=== PATIENT | female | born 1935 | race African-American/Black ===

== ENCOUNTER 2016-06-01 19:27 | Emergency (ER) | payer MEDICARE, MEDICAID ==
[~2016-06-01] VITALS: Ht 170.2 cm; Wt 72.0 kg
[~2016-06-01 19:27] MED LIST: AMLO10TA80 PO; BUME2TAB3 PO; CINA30 PO; CLON0.1T PO; FERR-63 PO; HYDR-523 PO; LAMO200T PO; LORA10TA7 PO; METOLAZONE PO; MINO2.5T19 PO; MONT10TA21 PO; NEBI20TA2 PO; ONDA4TAB5 PO; PHOSLO PO; RENAVITE PO; SEVE800T8 PO; TERA2CAP53 PO
[2016-06-01] MEDS ORDERED: LEVOFLOXACIN 750MG PREMIX 150 ML IV STA (19:48)
[2016-06-01] MEDS ORDERED: MAGNESIUM 2 G PREMIX 50 ML IV STA (19:48)
[2016-06-01] MEDS ORDERED: IPRATROPIUM BROMIDE (0.02%) 0.5MG/2.5ML NEB HHN STA ×2 (19:48)
[2016-06-01] MEDS ORDERED: METHYLPREDNISOLONE SOD SUCC 125 MG/2 ML VIAL IV STA (19:48)
[2016-06-01] MEDS ORDERED: ALBUTEROL (0.083%) 2.5MG/3ML NEB HHN STA (19:48)
[2016-06-01] MEDS ORDERED: NITROGLYCERIN OINT 1GM/INCH UDPKT TD ONE (20:00)
[2016-06-01] MEDS ORDERED: HALOPERIDOL LACTATE 5MG/ML VIAL IM ONE (20:00)
[2016-06-01] MEDS ORDERED: ALBUTEROL (0.083%) 2.5MG/3ML NEB HHN SCH (20:00)
[2016-06-01] MEDS ORDERED: ASPIRIN 81MG TABLET PO ONE (20:00)
[2016-06-01 21:06] LABS: BG BASE EXCESS 5.3 mmol/L (-2.0-2.0); BG CARBOXYHEMOGLOBIN 1.2 % (0.5-1.5); BG DEOXYHEMOGLOBIN 0.9 % (0.0-5.0); BG FRACTION INSPIRED OXYGEN 60; BG HCO3 ACT 29.4 mmol/L (22.0-26.0); BG OXYGEN SATURATION 99.1 % (92.0-98.5); BG OXYHEMOGLOBIN 97.9 % (94.0-97.0); BG PCO2 40.9 mmHg (35.0-45.0); BG PH 7.474 (7.350-7.450); BG PO2 179.7 mmHg (75.0-100.0); BG SAMPLE SITE RIGHT RADIAL; BG TOTAL HEMOGLOBIN 12.8 g/dL (12.0-18.0); BG VENT MODE ON TX
[2016-06-01] MEDS ORDERED: LABETALOL HCL 20MG/4ML CARPUJECT IV ONE (21:15)
[2016-06-01 21:24] LABS: BASOPHILS % 1.3 % (0.0-2.0); EOSINOPHILS % 0.9 % (0.0-5.0); HEMATOCRIT. 36.6 % (36.0-48.0); LYMPHOCYTES % 17.8 % (20.0-50.0); MEAN CORPUSCULAR HEMOGLOBIN 30.4 pg (28.0-32.0); MEAN CORPUSCULAR HGB CONC 32.7 g/dL (31.0-37.0); MEAN CORPUSCULAR VOLUME 93.2 fL (81.0-99.0); MEAN PLATELET VOLUME 8.5 fl (7.4-10.4); MONOCYTES % 13.2 % (2.0-8.0); NEUTROPHILS % 66.8 % (40.0-76.0); PLATELET 189 x1000/uL (130-400); RED BLOOD CELL COUNT 3.93 mill/uL (4.2-5.4); RED CELL DISTRIBUTION WIDTH 21.3 % (11.6-14.6); WHITE BLOOD COUNT 7.8 x1000/uL (4.5-11.0)
[2016-06-01 21:30] LABS: D-DIMER 0.73 mg/L FEU (<0.50); INR 0.9; PROTHROMBIN TIME 9.6 sec
[2016-06-01 21:38] LABS: ALANINE AMINOTRANSFERASE 12 IU/L (13-61); ALBUMIN 2.5 g/dL (3.4-5.0); ANION GAP 14; CALCIUM 8.3 mg/dL (8.5-10.1); CARBON DIOXIDE 31 mEq/L (21-32); CHLORIDE 95 mEq/L (98-107); ETHANOL BLOOD < 10 mg/dL; INDEX HEMOLYSI 2 (1-3); INDEX ICTERIC 1 (1-4); INDEX LIPEMIC 1 (1-3); LIPASE 394 IU/L (73-393); TROPONIN I 0.16 ng/mL (0.00-0.04); UREA NITROGEN BLOOD 22 mg/dL (7-21); eGFR 20 mL/min (>60)
[2016-06-01] MEDS ORDERED: MORPHINE SULFATE 4 MG/ML CPJ (NOT FOR IM USE) IV NR (22:03)
[2016-06-02 06:24] VITALS: BP 139/67
== END 2016-06-02 06:41 ==
LOC: ER 20:48
DX: J44.1 Chronic obstructive pulmonary disease with (acute) exacerbation (principal); N18.6 End stage renal disease; I47.1 Supraventricular tachycardia; I13.0 Hypertensive heart and chronic kidney disease with heart failure and stage 1 through stage 4 chronic kidney disease, or unspecified chronic kidney disease; I50.9 Heart failure, unspecified; F03.90 Unspecified dementia, unspecified severity, without behavioral disturbance, psychotic disturbance, mood disturbance, and anxiety; E78.00 Pure hypercholesterolemia, unspecified; Z88.1 Allergy status to other antibiotic agents; Z88.6 Allergy status to analgesic agent; Z88.8 Allergy status to other drugs, medicaments and biological substances; Z79.899 Other long term (current) drug therapy; Z99.2 Dependence on renal dialysis
CPT/HCPCS: 36415; 36600; 71010; 80053; 82375; 82805; 83605; 83690; 84484; 85025; 85379; 85610; 93005; 94640; 96365; 96375; 99291; G0482; J1956; J2270; J2930; J3475; J3490; J7611

== ENCOUNTER 2016-08-08 17:43 | Emergency (ER) | payer MEDICARE, MEDICAID ==
[~2016-08-08] VITALS: Ht 167.6 cm; Wt 90.0 kg
[2016-08-08 18:32] LABS: BASOPHILS % 0.7 % (0.0-2.0); EOSINOPHILS % 2.2 % (0.0-5.0); HEMATOCRIT. 32.1 % (36.0-48.0); HEMOGLOBIN. 10.5 g/dL (12.0-16.0); LYMPHOCYTES % 14.7 % (20.0-50.0); MEAN CORPUSCULAR HEMOGLOBIN 29.9 pg (28.0-32.0); MEAN CORPUSCULAR VOLUME 91.1 fL (81.0-99.0); MEAN PLATELET VOLUME 8.9 fl (7.4-10.4); MONOCYTES % 9.3 % (2.0-8.0); NEUTROPHILS % 73.1 % (40.0-76.0); PLATELET 234 x1000/uL (130-400); RED BLOOD CELL COUNT 3.53 mill/uL (4.2-5.4); RED CELL DISTRIBUTION WIDTH 20.5 % (11.6-14.6)
[2016-08-08 18:34] LABS: CHLORIDE 98 mEq/L (98-107)
[2016-08-08 18:37] LABS: CARBON DIOXIDE 34 mEq/L (21-32)
[2016-08-08 18:44] LABS: CARBAMAZEPINE < 0.5 ug/mL (4-12); PHENYTOIN 0.4 ug/mL (10-20)
[2016-08-08 18:46] LABS: PHENOBARBITAL 5.1 ug/mL (15.0-40.0)
[2016-08-08 18:47] LABS: VALPROIC ACID < 3.0 ug/mL (50-100)
[2016-08-08] MEDS ORDERED: PHENOBARBITAL SODIUM 65MG/ML 1ML IV ONE (19:15)
[2016-08-08] MEDS ORDERED: LAMOTRIGINE 100MG TABLET PO SCH (19:15)
[2016-08-08] MEDS ORDERED: ACETAMINOPHEN 325MG TABLET PO ONE (19:45)
[2016-08-08] MEDS ORDERED: TRAMADOL 50MG TABLET PO ONE (20:30)
[2016-08-08 20:31] VITALS: BP 157/70
== END 2016-08-08 21:50 | disposition home or self-care (01) ==
LOC: ER 18:27
DX: R56.9 Unspecified convulsions (principal); I48.91 Unspecified atrial fibrillation; E78.00 Pure hypercholesterolemia, unspecified; F03.90 Unspecified dementia, unspecified severity, without behavioral disturbance, psychotic disturbance, mood disturbance, and anxiety; I13.0 Hypertensive heart and chronic kidney disease with heart failure and stage 1 through stage 4 chronic kidney disease, or unspecified chronic kidney disease; I50.9 Heart failure, unspecified; N18.9 Chronic kidney disease, unspecified; Z99.2 Dependence on renal dialysis; Z88.1 Allergy status to other antibiotic agents; Z88.6 Allergy status to analgesic agent
CPT/HCPCS: 36415; 80053; 80156; 80165; 80184; 80185; 85025; 96374; 99284; J2560

== ENCOUNTER 2016-08-13 17:38 | Inpatient (IN) | payer MEDICARE, MEDICAID ==
[~2016-08-13] VITALS: Ht 162.6 cm; Wt 93.2 kg
[~2016-08-13 17:38] MED LIST changes: +TERA2CAP4 PO; -TERA2CAP53 PO
[2016-08-13 19:32] LABS: BASOPHILS % 0.6 % (0.0-2.0); EOSINOPHILS % 2.1 % (0.0-5.0); HEMATOCRIT. 28.2 % (36.0-48.0); HEMOGLOBIN. 9.1 g/dL (12.0-16.0); LYMPHOCYTES % 8.3 % (20.0-50.0); MEAN CORPUSCULAR HEMOGLOBIN 29.6 pg (28.0-32.0); MEAN CORPUSCULAR VOLUME 92.3 fL (81.0-99.0); MEAN PLATELET VOLUME 8.5 fl (7.4-10.4); MONOCYTES % 9.4 % (2.0-8.0); NEUTROPHILS % 79.6 % (40.0-76.0); PLATELET 171 x1000/uL (130-400); RED BLOOD CELL COUNT 3.06 mill/uL (4.2-5.4); RED CELL DISTRIBUTION WIDTH 21.8 % (11.6-14.6)
[2016-08-13 19:49] LABS: CARBON DIOXIDE 35 mEq/L (21-32); CHLORIDE 100 mEq/L (98-107); PHENOBARBITAL 6.5 ug/mL (15.0-40.0); TROPONIN I 0.02 ng/mL (0.00-0.04)
[2016-08-13] MEDS ORDERED: KETOROLAC 30MG/ML VIAL IV ONE (21:15)
[2016-08-14] MEDS ORDERED: LACTULOSE 20G/30ML UDC PO PRN (03:45)
[2016-08-14] MEDS ORDERED: CLONIDINE 0.1MG TABLET PO PRN (03:45)
[2016-08-14] MEDS ORDERED: HYDROCODONE/ACETAMINOPHEN 5/325MG TABLET PO PRN (03:45)
[2016-08-14] MEDS ORDERED: ACETAMINOPHEN 325MG TABLET PO PRN (03:45)
[2016-08-14] MEDS ORDERED: METOCLOPRAMIDE 10MG/10 ML UDC PO PRN (03:45)
[2016-08-14] MEDS ORDERED: DIPHENHYDRAMINE 25MG CAPSULE PO PRN (03:45)
[2016-08-14] MEDS ORDERED: LORAZEPAM 2MG/ML CPJ IV PRN (05:15)
[2016-08-14] MEDS: CALCIUM ACETATE 667MG CAPSULE PO SCH ×3 (07:04→18:18)
[2016-08-14] MEDS: PHENOBARBITAL 30 MG TABLET PO SCH ×3 (07:04→22:39)
[2016-08-14] MEDS ORDERED: OMEPRAZOLE 20MG CAPSULE EXTENDED RELEASE PO NR (08:15)
[2016-08-14 09:12] LABS: HEMATOCRIT 25.1 % (36.0-48.0); HEMOGLOBIN 8.3 g/dL (12.0-16.0); MEAN CORPUSCULAR HEMOGLOBIN 30.1 pg (28.0-32.0); MEAN CORPUSCULAR VOLUME 91.6 fL (81.0-99.0); PLATELET 159 x1000/uL (130-400); RED BLOOD CELL COUNT 2.74 mill/uL (4.2-5.4); RED CELL DISTRIBUTION WIDTH 21.8 % (11.6-14.6)
[2016-08-14] MEDS: DOCUSATE SODIUM 250MG CAPSULE PO SCH (09:14)
[2016-08-14] MEDS: ISOSORBIDE MONONITRATE 30MG TABLET SR 24HR PO SCH (09:14)
[2016-08-14] MEDS: CALCITRIOL 0.25MCG CAPSULE PO SCH (09:14)
[2016-08-14] MEDS: METOPROLOL TARTRATE 25MG TABLET PO SCH ×2 (09:15→22:39)
[2016-08-14] MEDS: LEVETIRACETAM 250MG TABLET PO SCH ×2 (09:15→22:35)
[2016-08-14] MEDS: AMIODARONE HCL 200 MG TABLET PO SCH ×2 (09:15→22:39)
[2016-08-14 09:54] LABS: CARBON DIOXIDE 35 mEq/L (21-32); CHLORIDE 100 mEq/L (98-107); TOTAL IRON BINDING CAPACITY 171 ug/dL (250-450)
[2016-08-14] MEDS: HYDROCODONE/ACETAMINOPHEN 5/325MG TABLET PO PRN (13:27)
[2016-08-14] MEDS ORDERED: FAMOTIDINE 20MG TABLET PO SCH (21:00)
[2016-08-15] MEDS: PHENOBARBITAL 30 MG TABLET PO SCH ×3 (06:00→21:22)
[2016-08-15 06:08] LABS: PROTHROMBIN TIME 10.4 sec
[2016-08-15 06:57] LABS: BASOPHILS % 1.6 % (0.0-2.0); CARBON DIOXIDE 34 mEq/L (21-32); CHLORIDE 100 mEq/L (98-107); EOSINOPHILS % 4.1 % (0.0-5.0); HEMATOCRIT. 26.6 % (36.0-48.0); HEMOGLOBIN. 8.6 g/dL (12.0-16.0); LYMPHOCYTES % 21.3 % (20.0-50.0); MEAN CORPUSCULAR HEMOGLOBIN 29.9 pg (28.0-32.0); MEAN PLATELET VOLUME 8.7 fl (7.4-10.4); MONOCYTES % 12.2 % (2.0-8.0); NEUTROPHILS % 60.8 % (40.0-76.0); PLATELET 165 x1000/uL (130-400); RED BLOOD CELL COUNT 2.86 mill/uL (4.2-5.4); RED CELL DISTRIBUTION WIDTH 22.7 % (11.6-14.6)
[2016-08-15] MEDS: OMEPRAZOLE 20MG CAPSULE EXTENDED RELEASE PO SCH (07:38)
[2016-08-15] MEDS: CALCIUM ACETATE 667MG CAPSULE PO SCH ×3 (07:39→18:06)
[2016-08-15] MEDS ORDERED: DIPHENHYDRAMINE 50MG/ML VIAL IV NR (08:30)
[2016-08-15] MEDS ORDERED: DIPHENHYDRAMINE 50MG/ML VIAL IV PRN (08:30)
[2016-08-15] MEDS: DOCUSATE SODIUM 250MG CAPSULE PO SCH (08:43)
[2016-08-15] MEDS: ISOSORBIDE MONONITRATE 30MG TABLET SR 24HR PO SCH (08:44)
[2016-08-15] MEDS: LEVETIRACETAM 250MG TABLET PO SCH ×2 (08:44→21:19)
[2016-08-15] MEDS: CALCITRIOL 0.25MCG CAPSULE PO SCH (08:45)
[2016-08-15] MEDS: FOLIC ACID/VITAMIN B COMP W-C TABLET PO SCH (08:45)
[2016-08-15] MEDS ORDERED: SORBITOL 70% SOLN 30ML PO NR (08:45)
[2016-08-15] MEDS: AMIODARONE HCL 200 MG TABLET PO SCH ×2 (08:45→21:18)
[2016-08-15] MEDS: METOPROLOL TARTRATE 25MG TABLET PO SCH ×2 (09:00→21:18)
[2016-08-15] MEDS ORDERED: CEFAZOLIN 1000MG PREMIX 50 ML IV ONE ×2 (10:21→11:00)
[2016-08-15] MEDS ORDERED: LIDOCAINE HCL 1% 20ML VIAL (Pyxis) INJ ONE (10:22)
[2016-08-15] MEDS ORDERED: HEPARIN 1000 UNITS/ML 10ML ONE (10:22)
[2016-08-15] MEDS ORDERED: SODIUM BICARBONATE 4% (2.4MEQ) 5ML VIAL IV ONE (10:22)
[2016-08-15] MEDS ORDERED: IOHEXOL-300 100 ML BOTTLE ONE (10:33)
[2016-08-15] MEDS ORDERED: FENTANYL CITRATE/PF 50MCG/ML 2ML VIAL ONE (10:52)
[2016-08-15] MEDS ORDERED: HEPARIN 5000 UNITS/ML VIAL IV NR (11:00)
[2016-08-15] MEDS ORDERED: FENTANYL CITRATE/PF 50MCG/ML 2ML VIAL IV NR (11:15)
[2016-08-15 11:17] LABS: PLATELET ESTIMATE NORMAL
[2016-08-15 17:18] LABS: PHOSPHORUS 2.5 mg/dL (2.5-4.9)
[2016-08-15] MEDS ORDERED: EPOETIN ALFA 4000UNITS/ML VIAL SUBCUT SCH (21:00)
[2016-08-15] MEDS ORDERED: EPOETIN ALFA 10000UNITS/ML VIAL SUBCUT SCH (21:00)
[2016-08-15] MEDS: HYDROCODONE/ACETAMINOPHEN 5/325MG TABLET PO PRN (21:31)
[2016-08-16] MEDS: PHENOBARBITAL 30 MG TABLET PO SCH ×2 (06:20→13:12)
[2016-08-16 07:19] LABS: HEMATOCRIT. 25.6 % (36.0-48.0); HEMOGLOBIN. 8.4 g/dL (12.0-16.0); MEAN CORPUSCULAR HEMOGLOBIN 30.9 pg (28.0-32.0); MEAN CORPUSCULAR VOLUME 94.3 fL (81.0-99.0); MEAN PLATELET VOLUME 9.1 fl (7.4-10.4); PLATELET 164 x1000/uL (130-400); RED BLOOD CELL COUNT 2.71 mill/uL (4.2-5.4); RED CELL DISTRIBUTION WIDTH 21.7 % (11.6-14.6)
[2016-08-16 08:47] LABS: PLATELET ESTIMATE NORMAL
[2016-08-16] MEDS: LEVETIRACETAM 250MG TABLET PO SCH (08:58)
[2016-08-16] MEDS: OMEPRAZOLE 20MG CAPSULE EXTENDED RELEASE PO SCH (08:58)
[2016-08-16] MEDS: CALCITRIOL 0.25MCG CAPSULE PO SCH (08:58)
[2016-08-16] MEDS: ISOSORBIDE MONONITRATE 30MG TABLET SR 24HR PO SCH (08:58)
[2016-08-16] MEDS: DOCUSATE SODIUM 250MG CAPSULE PO SCH (08:59)
[2016-08-16] MEDS: METOPROLOL TARTRATE 25MG TABLET PO SCH (08:59)
[2016-08-16] MEDS: AMIODARONE HCL 200 MG TABLET PO SCH (08:59)
[2016-08-16] MEDS: CALCIUM ACETATE 667MG CAPSULE PO SCH ×2 (08:59→13:12)
[2016-08-16] MEDS ORDERED: AMLODIPINE 10MG TABLET PO SCH (09:00)
[2016-08-16] MEDS: HYDROCODONE/ACETAMINOPHEN 5/325MG TABLET PO PRN ×2 (09:01→16:38)
[2016-08-16] MEDS: FOLIC ACID/VITAMIN B COMP W-C TABLET PO SCH (09:01)
[2016-08-16 16:38] VITALS: BP 115/56
[2016-09-15] MEDS ORDERED: OMEP20TA2 PO (02:01)
== END 2016-08-16 17:15 | DRG 252 ==
LOC: ER 17:47 → 6WST 23:46 → ENRESERV 23:56
PROVIDERS: ADMIT Internal Medicine Geriatric Medicine; ATTEND Internal Medicine Geriatric Medicine
PROC: 05743ZZ Dilation of Left Innominate Vein, Percutaneous Approach (ICD-10-PCS; principal; 2016-08-15)
PROC: B51W1ZZ Fluoroscopy of Dialysis Shunt/Fistula using Low Osmolar Contrast (ICD-10-PCS; 2016-08-15)
PROC: B51N1ZZ Fluoroscopy of Left Upper Extremity Veins using Low Osmolar Contrast (ICD-10-PCS; 2016-08-15)
PROC: B5181ZZ Fluoroscopy of Superior Vena Cava using Low Osmolar Contrast (ICD-10-PCS; 2016-08-15)
PROC: 5A1D00Z (ICD-10-PCS; 2016-08-15)
DX: T82.868A Thrombosis due to vascular prosthetic devices, implants and grafts, initial encounter (principal); N18.6 End stage renal disease; I87.1 Compression of vein; I12.0 Hypertensive chronic kidney disease with stage 5 chronic kidney disease or end stage renal disease; E44.0 Moderate protein-calorie malnutrition; G40.419 Other generalized epilepsy and epileptic syndromes, intractable, without status epilepticus; D63.8 Anemia in other chronic diseases classified elsewhere; Z68.35 Body mass index [BMI] 35.0-35.9, adult; G89.4 Chronic pain syndrome; M48.00 Spinal stenosis, site unspecified; M81.0 Age-related osteoporosis without current pathological fracture; J44.9 Chronic obstructive pulmonary disease, unspecified; I25.10 Atherosclerotic heart disease of native coronary artery without angina pectoris; E78.00 Pure hypercholesterolemia, unspecified; F03.90 Unspecified dementia, unspecified severity, without behavioral disturbance, psychotic disturbance, mood disturbance, and anxiety; I48.0 Paroxysmal atrial fibrillation; M19.90 Unspecified osteoarthritis, unspecified site; F10.21 Alcohol dependence, in remission; Z80.0 Family history of malignant neoplasm of digestive organs; Z82.49 Family history of ischemic heart disease and other diseases of the circulatory system; Z83.3 Family history of diabetes mellitus; Z79.899 Other long term (current) drug therapy; Z85.118 Personal history of other malignant neoplasm of bronchus and lung; Z90.3 Acquired absence of stomach [part of]; Z99.2 Dependence on renal dialysis; Z99.3 Dependence on wheelchair; Z88.6 Allergy status to analgesic agent; Z88.1 Allergy status to other antibiotic agents; Z91.041 Radiographic dye allergy status; Z87.891 Personal history of nicotine dependence
CPT/HCPCS: 36415; 36901; 36907; 70450; 71010; 80048; 80053; 80184; 83540; 83550; 83735; 84100; 84443; 84484; 85025; 85027; 85610; 93880; 96374; 97162; 97530; 99285; A6261; C1725; C1766; C1769; J0690; J0885; J1200; J1642; J1644; J1885; J3010; J3490; J7030; J7050; Q0163; Q9967

== ENCOUNTER 2016-09-14 16:12 | Inpatient (IN) | payer MEDICARE, MEDICAID ==
[~2016-09-14] VITALS: Ht 162.6 cm; Wt 76.2 kg
[~2016-09-14 16:12] MED LIST changes: -TERA2CAP4 PO; +TERA2CAP53 PO
[2016-09-14 17:08] LABS: HEMATOCRIT. 30.6 % (36.0-48.0); MEAN CORPUSCULAR HEMOGLOBIN 31.3 pg (28.0-32.0); MEAN CORPUSCULAR VOLUME 95.4 fL (81.0-99.0); MEAN PLATELET VOLUME 9.1 fl (7.4-10.4); PLATELET 204 x1000/uL (130-400); RED CELL DISTRIBUTION WIDTH 25.8 % (11.6-14.6)
[2016-09-14 17:14] LABS: PROTHROMBIN TIME 10.7 sec
[2016-09-14 17:16] LABS: CARBON DIOXIDE 25 mEq/L (21-32); CHLORIDE 98 mEq/L (98-107)
[2016-09-14 17:23] LABS: TROPONIN I 0.02 ng/mL (0.00-0.04)
[2016-09-14 17:29] LABS: PLATELET ESTIMATE NORMAL
[2016-09-14 19:09] LABS: PHOSPHORUS 2.8 mg/dL (2.5-4.9)
[2016-09-14] MEDS ORDERED: MORPHINE SULFATE 10 MG/ML CPJ IM ONE (20:00)
[2016-09-14] MEDS ORDERED: FUROSEMIDE 100MG/10ML VIAL IV NR (21:25)
[2016-09-14] MEDS ORDERED: AMIODARONE HCL 200 MG TABLET PO SCH (21:25)
[2016-09-14 23:00] VITALS: BP 115/72
[2016-09-15] MEDS ORDERED: NITROGLYCERIN OINT 1GM/INCH UDPKT TD PRN (00:30)
[2016-09-15] MEDS: DILTIAZEM HCL 60MG TABLET PO SCH ×5 (00:47→18:10)
[2016-09-15] MEDS: HYDROCODONE/ACETAMINOPHEN 5/325MG TABLET PO PRN ×4 (00:48→17:58)
[2016-09-15] MEDS ORDERED: METO25TA6 PO (02:01)
[2016-09-15] MEDS ORDERED: CALC0.253 PO (02:01)
[2016-09-15] MEDS ORDERED: ACET-2178 PO (02:01)
[2016-09-15] MEDS ORDERED: OXYC-104 PO (02:01)
[2016-09-15] MEDS ORDERED: DOCU-138 PO (02:01)
[2016-09-15] MEDS ORDERED: ISOS30TA6 PO (02:01)
[2016-09-15] MEDS ORDERED: LEVE500T19 PO (02:01)
[2016-09-15] MEDS ORDERED: LACT10SO6 PO (02:01)
[2016-09-15] MEDS ORDERED: OMEP20TA80 PO (02:01)
[2016-09-15] MEDS ORDERED: AMIO100T4 PO (02:01)
[2016-09-15] MEDS ORDERED: FOLI1TAB87 PO (02:01)
[2016-09-15] MEDS ORDERED: EPO10 IJ (02:01)
[2016-09-15] MEDS ORDERED: PHEN30TA42 PO (02:01)
[2016-09-15] MEDS ORDERED: LORA1TAB PO (02:01)
[2016-09-15 04:00] VITALS: BP 106/67
[2016-09-15 07:06] LABS: HEMATOCRIT. 32.9 % (36.0-48.0); HEMOGLOBIN. 10.8 g/dL (12.0-16.0); MEAN CORPUSCULAR HEMOGLOBIN 31.6 pg (28.0-32.0); MEAN CORPUSCULAR VOLUME 96.1 fL (81.0-99.0); MEAN PLATELET VOLUME 9.3 fl (7.4-10.4); PLATELET 258 x1000/uL (130-400); RED BLOOD CELL COUNT 3.42 mill/uL (4.2-5.4); RED CELL DISTRIBUTION WIDTH 25.7 % (11.6-14.6)
[2016-09-15 07:53] LABS: CHLORIDE 98 mEq/L (98-107)
[2016-09-15 08:00] VITALS: BP 115/79
[2016-09-15 08:08] LABS: CARBON DIOXIDE 22 mEq/L (21-32); TROPONIN I 0.24 ng/mL (0.00-0.04)
[2016-09-15] MEDS ORDERED: CLONIDINE 0.1MG TABLET PO PRN (09:45)
[2016-09-15] MEDS ORDERED: ACETAMINOPHEN 325MG TABLET PO PRN (09:45)
[2016-09-15] MEDS: CLOPIDOGREL 75MG TABLET PO SCH (10:39)
[2016-09-15] MEDS: CALCITRIOL 0.25MCG CAPSULE PO SCH (10:39)
[2016-09-15] MEDS: LEVOFLOXACIN 250MG TABLET PO SCH (10:39)
[2016-09-15] MEDS: PANTOPRAZOLE 40MG DR TABLET PO SCH ×2 (10:39→20:26)
[2016-09-15] MEDS: LAMOTRIGINE 100MG TABLET PO SCH ×2 (10:39→17:12)
[2016-09-15] MEDS: LEVETIRACETAM 250MG TABLET PO SCH ×2 (10:39→20:26)
[2016-09-15] MEDS: CINACALCET HCL 30MG TABLET PO SCH (10:39)
[2016-09-15] MEDS: FERROUS SULFATE 325MG TABLET PO SCH (10:39)
[2016-09-15 12:00] VITALS: BP 100/72
[2016-09-15] MEDS: IPRATROPIUM/ALBUTEROL 0.5-3(2.5)MG/3ML NEB HHN SCH ×3 (12:07→20:39)
[2016-09-15] MEDS: LAMOTRIGINE 150MG TABLET PO SCH ×2 (12:19→17:12)
[2016-09-15] MEDS: PHENOBARBITAL 30 MG TABLET PO SCH ×3 (12:19→22:43)
[2016-09-15 12:48] LABS: NUCLEATED RED BLOOD CELLS 4 /100 WBC; PLATELET ESTIMATE NORMAL
[2016-09-15] MEDS: SEVELAMER CARBONATE 800 MG TABLET PO SCH ×2 (13:10→17:12)
[2016-09-15] MEDS: HYDROCODONE/ACETAMINOPHEN 5/325MG TABLET PO SCH ×2 (14:00→22:43)
[2016-09-15 16:00] VITALS: BP 141/30
[2016-09-15] MEDS: MONTELUKAST SODIUM 10MG TABLET PO SCH (17:11)
[2016-09-15 20:17] VITALS: BP 98/66
[2016-09-16] VITALS: BP 93/65
[2016-09-16] MEDS: IPRATROPIUM/ALBUTEROL 0.5-3(2.5)MG/3ML NEB HHN SCH ×6 (00:43→20:41)
[2016-09-16 04:00] VITALS: BP 109/73
[2016-09-16] MEDS: LAMOTRIGINE 100MG TABLET PO SCH ×2 (07:04→18:13)
[2016-09-16] MEDS: PANTOPRAZOLE 40MG DR TABLET PO SCH ×2 (07:04→21:46)
[2016-09-16] MEDS: PHENOBARBITAL 30 MG TABLET PO SCH ×3 (07:04→21:48)
[2016-09-16] MEDS: LAMOTRIGINE 150MG TABLET PO SCH ×2 (07:05→17:42)
[2016-09-16] MEDS: HYDROCODONE/ACETAMINOPHEN 5/325MG TABLET PO SCH ×3 (07:06→21:48)
[2016-09-16] MEDS ORDERED: ACETAMINOPHEN 325MG TABLET PO PRN (07:15)
[2016-09-16 08:00] VITALS: BP 93/63
[2016-09-16] MEDS ORDERED: SORBITOL 70% SOLN 30ML PO NR (08:45)
[2016-09-16] MEDS ORDERED: NA PHOS,M-B/NA PHOS,DI-BA ENEMA 118ML PR NR (08:45)
[2016-09-16] MEDS: ISOSORBIDE MONONITRATE 30MG TABLET SR 24HR PO SCH (09:00)
[2016-09-16] MEDS ORDERED: AMLODIPINE 10MG TABLET PO SCH (09:00)
[2016-09-16] MEDS ORDERED: NEBIVOLOL HCL 5 MG TABLET PO SCH (09:00)
[2016-09-16] MEDS: SEVELAMER CARBONATE 800 MG TABLET PO SCH ×3 (09:06→17:43)
[2016-09-16] MEDS: CLOPIDOGREL 75MG TABLET PO SCH (09:06)
[2016-09-16] MEDS: FERROUS SULFATE 325MG TABLET PO SCH (09:06)
[2016-09-16] MEDS: LEVETIRACETAM 250MG TABLET PO SCH ×2 (09:06→21:46)
[2016-09-16] MEDS: CALCITRIOL 0.25MCG CAPSULE PO SCH (09:06)
[2016-09-16 12:00] VITALS: BP 106/68
[2016-09-16] MEDS: DILTIAZEM HCL 90MG TABLET PO SCH ×3 (12:36→18:09)
[2016-09-16] MEDS ORDERED: DIGOXIN 500MCG/2ML AMP IV SCH (13:45)
[2016-09-16 14:43] LABS: HEMATOCRIT. 30.9 % (36.0-48.0); MEAN CORPUSCULAR HEMOGLOBIN 31.3 pg (28.0-32.0); MEAN CORPUSCULAR VOLUME 96.3 fL (81.0-99.0); MEAN PLATELET VOLUME 8.8 fl (7.4-10.4); PLATELET 276 x1000/uL (130-400); RED BLOOD CELL COUNT 3.21 mill/uL (4.2-5.4); RED CELL DISTRIBUTION WIDTH 25.5 % (11.6-14.6)
[2016-09-16 15:34] LABS: TROPONIN I 1.1 ng/mL (0.00-0.04)
[2016-09-16 16:00] VITALS: BP 132/75
[2016-09-16 16:13] LABS: NUCLEATED RED BLOOD CELLS 2 /100 WBC; PLATELET ESTIMATE NORMAL
[2016-09-16] MEDS: MONTELUKAST SODIUM 10MG TABLET PO SCH (18:01)
[2016-09-16 20:00] VITALS: BP 106/77
[2016-09-17] VITALS: BP 105/74
[2016-09-17] MEDS: IPRATROPIUM/ALBUTEROL 0.5-3(2.5)MG/3ML NEB HHN SCH ×5 (00:54→20:39)
[2016-09-17 04:00] VITALS: BP 90/78
[2016-09-17] MEDS: PHENOBARBITAL 30 MG TABLET PO SCH ×3 (05:25→21:17)
[2016-09-17] MEDS: LAMOTRIGINE 150MG TABLET PO SCH ×2 (05:25→18:16)
[2016-09-17] MEDS: LAMOTRIGINE 100MG TABLET PO SCH ×2 (05:25→18:15)
[2016-09-17] MEDS: HYDROCODONE/ACETAMINOPHEN 5/325MG TABLET PO SCH ×3 (05:27→21:21)
[2016-09-17] MEDS: DILTIAZEM HCL 90MG TABLET PO SCH ×4 (05:27→18:00)
[2016-09-17 07:17] LABS: CARBON DIOXIDE 26 mEq/L (21-32); CHLORIDE 99 mEq/L (98-107)
[2016-09-17 07:37] LABS: CREATINE KINASE 18 IU/L (26-192); CREATINE KINASE MB FRACTION 1.4 ng/mL (0.5-3.6); HDL CHOLESTEROL 59 mg/dL (40-59); LDL CHOLESTEROL 37 mg/dL (5-100)
[2016-09-17] MEDS: PANTOPRAZOLE 40MG DR TABLET PO SCH ×2 (07:40→20:50)
[2016-09-17 07:42] LABS: TROPONIN I 0.79 ng/mL (0.00-0.04)
[2016-09-17 08:00] VITALS: BP 112/56
[2016-09-17 08:07] LABS: HEMATOCRIT. 28.5 % (36.0-48.0); HEMOGLOBIN. 9.4 g/dL (12.0-16.0); MEAN CORPUSCULAR HEMOGLOBIN 31.6 pg (28.0-32.0); MEAN CORPUSCULAR VOLUME 95.4 fL (81.0-99.0); MEAN PLATELET VOLUME 8.3 fl (7.4-10.4); PLATELET 256 x1000/uL (130-400); RED BLOOD CELL COUNT 2.99 mill/uL (4.2-5.4); RED CELL DISTRIBUTION WIDTH 25.6 % (11.6-14.6)
[2016-09-17] MEDS: SEVELAMER CARBONATE 800 MG TABLET PO SCH ×3 (08:10→18:17)
[2016-09-17] MEDS: FERROUS SULFATE 325MG TABLET PO SCH (08:10)
[2016-09-17] MEDS ORDERED: DIGOXIN 125MCG TABLET PO NR (08:15)
[2016-09-17] MEDS ORDERED: SORBITOL 70% SOLN 30ML PO NR (08:15)
[2016-09-17] MEDS ORDERED: NA PHOS,M-B/NA PHOS,DI-BA ENEMA 118ML PR NR (08:15)
[2016-09-17] MEDS: CALCITRIOL 0.25MCG CAPSULE PO SCH (09:00)
[2016-09-17] MEDS: LEVETIRACETAM 250MG TABLET PO SCH ×2 (09:00→20:50)
[2016-09-17] MEDS: CLOPIDOGREL 75MG TABLET PO SCH (09:00)
[2016-09-17] MEDS: CINACALCET HCL 30MG TABLET PO SCH (10:00)
[2016-09-17] MEDS: LEVOFLOXACIN 250MG TABLET PO SCH (11:13)
[2016-09-17] MEDS: ISOSORBIDE MONONITRATE 30MG TABLET SR 24HR PO SCH (11:14)
[2016-09-17] MEDS ORDERED: DIGOXIN 500MCG/2ML AMP IV NR (11:15)
[2016-09-17] MEDS ORDERED: CLOPIDOGREL 75MG TABLET PO SCH (11:15)
[2016-09-17 12:00] VITALS: BP 121/69
[2016-09-17 13:10] LABS: BG BASE EXCESS 2.8 mmol/L (-2.0-2.0); BG CARBOXYHEMOGLOBIN 0.1 % (0.5-1.5); BG DEOXYHEMOGLOBIN 2.1 % (0.0-5.0); BG HCO3 ACT 28.8 mmol/L (22.0-26.0); BG METHEMOGLOBIN 0.2 % (0.0-1.5); BG OXYGEN SATURATION 97.9 % (92.0-98.5); BG OXYHEMOGLOBIN 97.6 % (94.0-97.0); BG PO2 122.6 mmHg (75.0-100.0); BG SAMPLE SITE RIGHT BRACHIAL; BG VENT MODE NASAL CANNULA
[2016-09-17] MEDS: ASPIRIN 81MG EC TABLET PO SCH (14:18)
[2016-09-17 16:00] VITALS: BP 98/49
[2016-09-17 17:53] LABS: NUCLEATED RED BLOOD CELLS 3 /100 WBC; PLATELET ESTIMATE NORMAL
[2016-09-17] MEDS: MONTELUKAST SODIUM 10MG TABLET PO SCH (18:16)
[2016-09-17] MEDS: DIGOXIN 125MCG TABLET PO SCH (18:19)
[2016-09-17 20:00] VITALS: BP 91/51
[2016-09-17] MEDS ORDERED: EPOETIN ALFA 4000UNITS/ML VIAL SUBCUT SCH (21:00)
[2016-09-17] MEDS ORDERED: PANTOPRAZOLE SODIUM 40 MG/VIAL IV SCH (21:00)
[2016-09-18] VITALS: BP 108/61
[2016-09-18] MEDS: IPRATROPIUM/ALBUTEROL 0.5-3(2.5)MG/3ML NEB HHN SCH ×4 (03:18→20:08)
[2016-09-18 04:00] VITALS: BP 103/63
[2016-09-18] MEDS: DILTIAZEM HCL 90MG TABLET PO SCH ×4 (05:17→18:00)
[2016-09-18] MEDS: LAMOTRIGINE 100MG TABLET PO SCH ×2 (05:18→18:43)
[2016-09-18] MEDS: HYDROCODONE/ACETAMINOPHEN 5/325MG TABLET PO SCH ×3 (05:18→21:30)
[2016-09-18] MEDS: LAMOTRIGINE 150MG TABLET PO SCH ×2 (05:18→18:43)
[2016-09-18] MEDS: PHENOBARBITAL 30 MG TABLET PO SCH ×3 (05:18→21:29)
[2016-09-18 06:16] LABS: INR 1.1; PARTIAL THROMBOPLASTIN TIME 28.5 sec (24.0-34.0); PROTHROMBIN TIME 11.4 sec
[2016-09-18 06:46] LABS: HEMATOCRIT. 29.6 % (36.0-48.0); HEMOGLOBIN. 9.5 g/dL (12.0-16.0); MEAN CORPUSCULAR HEMOGLOBIN 31.5 pg (28.0-32.0); MEAN CORPUSCULAR VOLUME 98.4 fL (81.0-99.0); MEAN PLATELET VOLUME 8.3 fl (7.4-10.4); PLATELET 269 x1000/uL (130-400); RED BLOOD CELL COUNT 3.01 mill/uL (4.2-5.4); RED CELL DISTRIBUTION WIDTH 25.4 % (11.6-14.6)
[2016-09-18 07:27] LABS: TROPONIN I 0.48 ng/mL (0.00-0.04)
[2016-09-18] MEDS: ASPIRIN 81MG EC TABLET PO SCH (07:48)
[2016-09-18] MEDS: SEVELAMER CARBONATE 800 MG TABLET PO SCH ×3 (07:48→18:43)
[2016-09-18] MEDS: FERROUS SULFATE 325MG TABLET PO SCH (07:48)
[2016-09-18] MEDS: CALCITRIOL 0.25MCG CAPSULE PO SCH (07:49)
[2016-09-18 08:00] VITALS: BP 100/60
[2016-09-18] MEDS: ISOSORBIDE MONONITRATE 30MG TABLET SR 24HR PO SCH (09:13)
[2016-09-18] MEDS: LEVETIRACETAM 250MG TABLET PO SCH ×2 (09:13→21:29)
[2016-09-18] MEDS: PANTOPRAZOLE 40MG DR TABLET PO SCH ×2 (09:13→21:31)
[2016-09-18] MEDS ORDERED: SORBITOL 70% SOLN 30ML PO NR ×2 (09:30→21:00)
[2016-09-18] MEDS ORDERED: NA PHOS,M-B/NA PHOS,DI-BA ENEMA 118ML PR NR ×2 (09:30→21:00)
[2016-09-18] MEDS ORDERED: FUROSEMIDE 40MG/4ML VIAL IVP NR (09:30)
[2016-09-18] MEDS ORDERED: SIMETHICONE 40 MG/0.6 ML 30ML ONE ×2 (11:32→15:11)
[2016-09-18] MEDS ORDERED: SODIUM CHLORIDE 0.9% 10ML VIAL ONE (11:32)
[2016-09-18 11:47] LABS: NUCLEATED RED BLOOD CELLS 5 /100 WBC; PLATELET ESTIMATE NORMAL
[2016-09-18 12:00] VITALS: BP 119/62
[2016-09-18] MEDS ORDERED: FENTANYL CITRATE/PF 50MCG/ML 2ML VIAL ONE (15:12)
[2016-09-18] MEDS ORDERED: MIDAZOLAM HCL 5 MG/5 ML VIAL ONE (15:12)
[2016-09-18] MEDS ORDERED: MIDAZOLAM HCL 5 MG/5 ML VIAL IV PRN (15:26)
[2016-09-18 16:00] VITALS: BP_SYST 114; BP_SYST 142; BP_DIAS 72; BP_DIAS 73
[2016-09-18] MEDS: DIGOXIN 125MCG TABLET PO SCH (18:00)
[2016-09-18 18:06] VITALS: BP 108/71
[2016-09-18] MEDS: MONTELUKAST SODIUM 10MG TABLET PO SCH (18:43)
[2016-09-19] VITALS (8 sets, daily range): BP systolic 104–127; BP diastolic 57–70
[2016-09-19] MEDS: IPRATROPIUM/ALBUTEROL 0.5-3(2.5)MG/3ML NEB HHN SCH ×5 (00:01→15:47)
[2016-09-19] MEDS: DILTIAZEM HCL 90MG TABLET PO SCH ×3 (00:13→11:58)
[2016-09-19] MEDS: LAMOTRIGINE 100MG TABLET PO SCH ×2 (05:28→18:15)
[2016-09-19] MEDS: PHENOBARBITAL 30 MG TABLET PO SCH ×2 (05:28→14:27)
[2016-09-19] MEDS: HYDROCODONE/ACETAMINOPHEN 5/325MG TABLET PO SCH ×2 (05:29→14:30)
[2016-09-19] MEDS: LAMOTRIGINE 150MG TABLET PO SCH ×2 (05:30→18:15)
[2016-09-19] MEDS: ISOSORBIDE MONONITRATE 30MG TABLET SR 24HR PO SCH (09:00)
[2016-09-19] MEDS ORDERED: SODIUM POLYSTYRENE SULFONATE 15 G/60 ML BOT PO NR (09:15)
[2016-09-19] MEDS: LEVETIRACETAM 250MG TABLET PO SCH (09:17)
[2016-09-19] MEDS: CALCITRIOL 0.25MCG CAPSULE PO SCH (09:18)
[2016-09-19] MEDS: FERROUS SULFATE 325MG TABLET PO SCH (09:18)
[2016-09-19] MEDS: ASPIRIN 81MG EC TABLET PO SCH (09:18)
[2016-09-19] MEDS: SEVELAMER CARBONATE 800 MG TABLET PO SCH ×3 (09:18→18:16)
[2016-09-19] MEDS: PANTOPRAZOLE 40MG DR TABLET PO SCH (09:18)
[2016-09-19] MEDS: CINACALCET HCL 30MG TABLET PO SCH (09:18)
[2016-09-19] MEDS ORDERED: CLOPIDOGREL 75MG TABLET PO NR (09:30)
[2016-09-19] MEDS: LEVOFLOXACIN 250MG TABLET PO SCH (11:58)
[2016-09-19] MEDS ORDERED: DILTIAZEM HCL 60MG TABLET PO SCH (18:00)
[2016-09-19] MEDS: MONTELUKAST SODIUM 10MG TABLET PO SCH (18:15)
[2016-09-19] MEDS: DIGOXIN 125MCG TABLET PO SCH (18:15)
[2016-09-19] MEDS: HYDROCODONE/ACETAMINOPHEN 5/325MG TABLET PO PRN (20:02)
[2016-09-20] MEDS ORDERED: CLOPIDOGREL 75MG TABLET PO SCH (09:00)
== END 2016-09-19 20:10 | DRG 280 ==
LOC: EDBD 16:12 → ER 16:59 → 7WST 20:23 → EDUNIT# 20:23 → EDBEDREQ 20:35 → ENRESERV 20:47 → 7WST 09-15 04:31
PROVIDERS: ADMIT Internal Medicine Geriatric Medicine; ATTEND Internal Medicine Geriatric Medicine
PROC: 5A1D60Z (ICD-10-PCS; 2016-09-15)
PROC: 0DB68ZX Excision of Stomach, Via Natural or Artificial Opening Endoscopic, Diagnostic (ICD-10-PCS; principal; 2016-09-18 15:00)
DX: I21.4 Non-ST elevation (NSTEMI) myocardial infarction (principal); N18.6 End stage renal disease; J18.9 Pneumonia, unspecified organism; I50.43 Acute on chronic combined systolic (congestive) and diastolic (congestive) heart failure; E44.0 Moderate protein-calorie malnutrition; I13.2 Hypertensive heart and chronic kidney disease with heart failure and with stage 5 chronic kidney disease, or end stage renal disease; J44.0 Chronic obstructive pulmonary disease with (acute) lower respiratory infection; I48.0 Paroxysmal atrial fibrillation; E87.5 Hyperkalemia; D63.8 Anemia in other chronic diseases classified elsewhere; G40.909 Epilepsy, unspecified, not intractable, without status epilepticus; K57.90 Diverticulosis of intestine, part unspecified, without perforation or abscess without bleeding; E11.22 Type 2 diabetes mellitus with diabetic chronic kidney disease; E11.65 Type 2 diabetes mellitus with hyperglycemia; E78.00 Pure hypercholesterolemia, unspecified; E78.5 Hyperlipidemia, unspecified; F02.80 Dementia in other diseases classified elsewhere, unspecified severity, without behavioral disturbance, psychotic disturbance, mood disturbance, and anxiety; G30.9 Alzheimer's disease, unspecified; G89.4 Chronic pain syndrome; I08.1 Rheumatic disorders of both mitral and tricuspid valves; I25.10 Atherosclerotic heart disease of native coronary artery without angina pectoris; T45.515A Adverse effect of anticoagulants, initial encounter; I95.9 Hypotension, unspecified; M48.00 Spinal stenosis, site unspecified; I48.2 Chronic atrial fibrillation; R07.89 Other chest pain; K29.70 Gastritis, unspecified, without bleeding; K44.9 Diaphragmatic hernia without obstruction or gangrene; M19.90 Unspecified osteoarthritis, unspecified site; M81.0 Age-related osteoporosis without current pathological fracture; R29.6 Repeated falls; Z79.01 Long term (current) use of anticoagulants; Z79.899 Other long term (current) drug therapy; Z85.118 Personal history of other malignant neoplasm of bronchus and lung; Z86.73 Personal history of transient ischemic attack (TIA), and cerebral infarction without residual deficits; Z87.11 Personal history of peptic ulcer disease; Z99.2 Dependence on renal dialysis; Z90.2 Acquired absence of lung [part of]; Z90.3 Acquired absence of stomach [part of]; Z95.5 Presence of coronary angioplasty implant and graft; Q27.33 Arteriovenous malformation of digestive system vessel; Y92.89 Other specified places as the place of occurrence of the external cause; Z68.28 Body mass index [BMI] 28.0-28.9, adult; Z88.1 Allergy status to other antibiotic agents; Z88.8 Allergy status to other drugs, medicaments and biological substances; Z88.6 Allergy status to analgesic agent; Z91.041 Radiographic dye allergy status
CPT/HCPCS: 36415; 36600; 70450; 71010; 78582; 80048; 80053; 80061; 82375; 82550; 82553; 82805; 83036; 83735; 83880; 84100; 84484; 85025; 85610; 85651; 85730; 87040; 88305; 88312; 88313; 93005; 93306; 93970; 94640; 94660; 94664; 96372; 97163; 99285; A4216; A9558; J0885; J1160; J1940; J2250; J2270; J3010; J7030; J7620

== ENCOUNTER 2016-10-05 17:42 | Inpatient (IN) | payer MEDICARE, MEDICAID ==
[~2016-10-05] VITALS: Ht 172.7 cm; Wt 75.9 kg
[~2016-10-05 17:42] MED LIST changes: +ACET-2178 PO; +AMIO100T4 PO; +CALC0.253 PO; +DOCU-138 PO; +EPO10 IJ; +FOLI1TAB87 PO; +ISOS30TA6 PO; +LACT10SO6 PO; +LEVE500T19 PO; +LORA1TAB PO; +METO25TA6 PO; +OMEP20TA80 PO; +OXYC-104 PO; +PHEN30TA42 PO
[2016-10-05 18:56] LABS: HEMATOCRIT. 28.7 % (36.0-48.0); HEMOGLOBIN. 9.6 g/dL (12.0-16.0); MEAN CORPUSCULAR HEMOGLOBIN 31.5 pg (28.0-32.0); MEAN CORPUSCULAR VOLUME 94.7 fL (81.0-99.0); MEAN PLATELET VOLUME 8.2 fl (7.4-10.4); PLATELET 225 x1000/uL (130-400); RED BLOOD CELL COUNT 3.04 mill/uL (4.2-5.4); RED CELL DISTRIBUTION WIDTH 22.8 % (11.6-14.6)
[2016-10-05 19:03] LABS: PROTHROMBIN TIME 10.4 sec (9.4-11.6)
[2016-10-05 19:12] LABS: CARBON DIOXIDE 34 mEq/L (21-32); CHLORIDE 98 mEq/L (98-107)
[2016-10-05 19:17] LABS: PHENOBARBITAL 7.2 ug/mL (15.0-40.0)
[2016-10-05 19:57] LABS: PLATELET ESTIMATE NORMAL
[2016-10-05] MEDS ORDERED: PHENOBARBITAL ELIXIR 30 MG/7.5ML UDC PO ONE (20:00)
[2016-10-05] MEDS ORDERED: ACETAMINOPHEN WITH CODEINE 300/30MG TABLET PO ONE (20:30)
[2016-10-06] MEDS ORDERED: ACETAMINOPHEN 325MG TABLET PO ONE (01:45)
[2016-10-06 02:50] VITALS: BP 137/71
[2016-10-06 04:00] VITALS: BP 146/54
[2016-10-06] MEDS: HYDROCODONE/ACETAMINOPHEN 5/325MG TABLET PO PRN ×2 (06:32→11:53)
[2016-10-06 07:35] VITALS: BP 149/61
[2016-10-06] MEDS: ENOXAPARIN 30MG/0.3ML SYR SUBCUT SCH (08:28)
[2016-10-06] MEDS ORDERED: NEBIVOLOL HCL 5 MG TABLET PO SCH (09:30)
[2016-10-06] MEDS ORDERED: CLONIDINE 0.1MG TABLET PO PRN (09:30)
[2016-10-06] MEDS ORDERED: LORAZEPAM 1MG TABLET PO PRN (09:30)
[2016-10-06] MEDS: AMIODARONE HCL 200 MG TABLET PO SCH ×2 (09:30→18:26)
[2016-10-06] MEDS ORDERED: ACETAMINOPHEN 325MG TABLET PO PRN ×2 (09:30→11:39)
[2016-10-06] MEDS ORDERED: CLOPIDOGREL 75MG TABLET PO SCH (09:30)
[2016-10-06] MEDS ORDERED: OMEPRAZOLE 20MG CAPSULE EXTENDED RELEASE PO SCH (09:30)
[2016-10-06] MEDS ORDERED: HYDROCODONE/ACETAMINOPHEN 5/325MG TABLET PO PRN (09:34)
[2016-10-06] MEDS ORDERED: CINACALCET HCL 30MG TABLET PO SCH (10:00)
[2016-10-06] MEDS: AMLODIPINE 10MG TABLET PO SCH (10:00)
[2016-10-06] MEDS: METOPROLOL TARTRATE 25MG TABLET PO SCH ×2 (10:00→20:39)
[2016-10-06] MEDS: ISOSORBIDE MONONITRATE 30MG TABLET SR 24HR PO SCH (10:00)
[2016-10-06] MEDS: FOLIC ACID/VITAMIN B COMP W-C TABLET PO SCH (10:10)
[2016-10-06] MEDS: CALCITRIOL 0.25MCG CAPSULE PO SCH (10:11)
[2016-10-06] MEDS: DOCUSATE SODIUM 100MG CAPSULE PO SCH ×2 (10:11→18:26)
[2016-10-06] MEDS: LEVETIRACETAM 250MG TABLET PO SCH ×2 (10:12→20:39)
[2016-10-06] MEDS: MINOXIDIL 10MG TABLET PO SCH (11:00)
[2016-10-06 12:11] VITALS: BP 160/69
[2016-10-06] MEDS ORDERED: FERROUS SULFATE 325MG TABLET PO SCH (12:50)
[2016-10-06] MEDS ORDERED: PHENOBARBITAL SODIUM 130MG/ML 1ML IV SCH (14:00)
[2016-10-06] MEDS: SEVELAMER CARBONATE 800 MG TABLET PO SCH ×2 (14:21→18:27)
[2016-10-06 15:45] VITALS: BP 160/60
[2016-10-06] MEDS ORDERED: LAMOTRIGINE 100MG TABLET PO SCH (15:45)
[2016-10-06] MEDS ORDERED: MONTELUKAST SODIUM 10MG TABLET PO SCH (17:00)
[2016-10-06 20:00] VITALS: BP 150/59
[2016-10-06] MEDS: DIPHENHYDRAMINE 25MG CAPSULE PO PRN (20:37)
[2016-10-07] VITALS: BP 130/54
[2016-10-07 04:00] VITALS: BP 149/58
[2016-10-07 06:52] LABS: HEMATOCRIT 28.2 % (36.0-48.0); HEMOGLOBIN 9.3 g/dL (12.0-16.0); MEAN CORPUSCULAR HEMOGLOBIN 31.4 pg (28.0-32.0); MEAN CORPUSCULAR VOLUME 95.2 fL (81.0-99.0); PLATELET 246 x1000/uL (130-400); RED BLOOD CELL COUNT 2.97 mill/uL (4.2-5.4); RED CELL DISTRIBUTION WIDTH 21.8 % (11.6-14.6)
[2016-10-07] MEDS ORDERED: OMEPRAZOLE 20MG CAPSULE EXTENDED RELEASE PO SCH (07:20)
[2016-10-07 08:01] VITALS: BP 142/64
[2016-10-07] MEDS: DOCUSATE SODIUM 100MG CAPSULE PO SCH (08:58)
[2016-10-07] MEDS: CALCITRIOL 0.25MCG CAPSULE PO SCH (08:58)
[2016-10-07] MEDS: AMIODARONE HCL 200 MG TABLET PO SCH (08:58)
[2016-10-07] MEDS: LEVETIRACETAM 250MG TABLET PO SCH (08:58)
[2016-10-07] MEDS: SEVELAMER CARBONATE 800 MG TABLET PO SCH ×2 (08:58→12:44)
[2016-10-07] MEDS: FOLIC ACID/VITAMIN B COMP W-C TABLET PO SCH (08:58)
[2016-10-07] MEDS: ISOSORBIDE MONONITRATE 30MG TABLET SR 24HR PO SCH (08:59)
[2016-10-07] MEDS: AMLODIPINE 10MG TABLET PO SCH (08:59)
[2016-10-07] MEDS: ENOXAPARIN 30MG/0.3ML SYR SUBCUT SCH (08:59)
[2016-10-07] MEDS: MINOXIDIL 10MG TABLET PO SCH (08:59)
[2016-10-07] MEDS ORDERED: LAMOTRIGINE 100MG TABLET PO SCH (09:00)
[2016-10-07] MEDS ORDERED: CLOPIDOGREL 75MG TABLET PO SCH (09:00)
[2016-10-07] MEDS: METOPROLOL TARTRATE 25MG TABLET PO SCH (09:02)
[2016-10-07 12:00] VITALS: BP 103/39
[2016-10-07] MEDS: HYDROCODONE/ACETAMINOPHEN 5/325MG TABLET PO PRN (12:49)
[2016-10-07 12:55] VITALS: BP 110/85
[2016-10-07] MEDS: DIPHENHYDRAMINE 25MG CAPSULE PO PRN (15:15)
[2016-10-07 16:00] VITALS: BP 103/47
[2016-10-08] MEDS ORDERED: EPOETIN ALFA 10000UNITS/ML VIAL SUBCUT SCH (21:00)
[2016-10-09 13:12] LABS: LAMOTIGINE (LAMICTAL) None Detected ug/mL (2.0-20.0)
[2016-10-10 13:10] LABS: LEVETIRACETAM / KEPPRA 2.5 ug/mL (10.0-40.0)
== END 2016-10-07 16:53 | DRG 100 ==
LOC: ER 17:42 → 6WST 21:38 → ENRESERV 21:52
PROVIDERS: ADMIT Internal Medicine Geriatric Medicine; ATTEND Internal Medicine Geriatric Medicine
PROC: 5A1D00Z (ICD-10-PCS; principal; 2016-10-06)
DX: G40.419 Other generalized epilepsy and epileptic syndromes, intractable, without status epilepticus (principal); N18.6 End stage renal disease; I13.2 Hypertensive heart and chronic kidney disease with heart failure and with stage 5 chronic kidney disease, or end stage renal disease; E44.1 Mild protein-calorie malnutrition; J44.9 Chronic obstructive pulmonary disease, unspecified; I48.2 Chronic atrial fibrillation; F03.90 Unspecified dementia, unspecified severity, without behavioral disturbance, psychotic disturbance, mood disturbance, and anxiety; D63.8 Anemia in other chronic diseases classified elsewhere; Z99.2 Dependence on renal dialysis; D50.9 Iron deficiency anemia, unspecified; E87.6 Hypokalemia; I50.9 Heart failure, unspecified; I25.10 Atherosclerotic heart disease of native coronary artery without angina pectoris; E78.00 Pure hypercholesterolemia, unspecified; G89.4 Chronic pain syndrome; M15.9 Polyosteoarthritis, unspecified; M81.0 Age-related osteoporosis without current pathological fracture; Z68.25 Body mass index [BMI] 25.0-25.9, adult; Z88.8 Allergy status to other drugs, medicaments and biological substances; Z95.5 Presence of coronary angioplasty implant and graft; Z85.118 Personal history of other malignant neoplasm of bronchus and lung; Z87.11 Personal history of peptic ulcer disease
CPT/HCPCS: 36415; 70450; 71010; 71250; 80048; 80053; 80184; 82542; 85025; 85027; 85610; 93005; 95816; 99285; J1650; J2560; J7030; Q0163

== ENCOUNTER 2016-12-03 14:15 | Inpatient (IN) | payer MEDICARE, MEDICAID ==
[~2016-12-03] VITALS: Ht 170.2 cm; Wt 79.8 kg
[~2016-12-03 14:15] MED LIST changes: +OMEP20TA2 PO; -OMEP20TA80 PO; +TERA2CAP4 PO; -TERA2CAP53 PO
[2016-12-03 17:32] LABS: HEMATOCRIT. 32.8 % (36.0-48.0); HEMOGLOBIN. 10.9 g/dL (12.0-16.0); MEAN CORPUSCULAR HEMOGLOBIN 30.6 pg (28.0-32.0); MEAN CORPUSCULAR VOLUME 92.2 fL (81.0-99.0); MEAN PLATELET VOLUME 8.2 fl (7.4-10.4); PLATELET 170 x1000/uL (130-400); RED BLOOD CELL COUNT 3.55 mill/uL (4.2-5.4); RED CELL DISTRIBUTION WIDTH 25.7 % (11.6-14.6)
[2016-12-03 17:38] LABS: PROTHROMBIN TIME 10.8 sec (9.4-11.6)
[2016-12-03 17:39] LABS: CARBON DIOXIDE 22 mEq/L (21-32); CHLORIDE 100 mEq/L (98-107)
[2016-12-03 17:46] LABS: TROPONIN I < 0.02 ng/mL (0.00-0.04)
[2016-12-03 18:17] LABS: PLATELET ESTIMATE NORMAL
[2016-12-03] MEDS ORDERED: POLY15DR55 OP (21:55)
[2016-12-03 21:59] VITALS: BP 193/79
[2016-12-03 22:00] VITALS: BP 193/76
[2016-12-03] MEDS ORDERED: IPRATROPIUM/ALBUTEROL 0.5-3(2.5)MG/3ML NEB HHN PRN (22:00)
[2016-12-03] MEDS ORDERED: ACETAMINOPHEN 325MG TABLET PO PRN (22:00)
[2016-12-03] MEDS ORDERED: ENOXAPARIN 40MG/0.4ML SYR SUBCUT SCH (22:00)
[2016-12-03] MEDS ORDERED: GUAIFENESIN 200MG/10ML SUGAR FREE UDC PO PRN (22:00)
[2016-12-03] MEDS ORDERED: CLONIDINE 0.1MG TABLET PO PRN ×2 (22:00)
[2016-12-03] MEDS ORDERED: DOCUSATE SODIUM 100MG CAPSULE PO PRN (22:00)
[2016-12-03] MEDS ORDERED: HYDROMORPHONE HCL/PF 2MG/ML CPJ IV PRN (22:15)
[2016-12-03] MEDS ORDERED: SODIUM POLYSTYRENE SULFONATE 15 G/60 ML BOT PO NR (22:15)
[2016-12-03] MEDS: METOCLOPRAMIDE HCL 5MG TABLET PO SCH (22:21)
[2016-12-03] MEDS: FAMOTIDINE 20MG TABLET PO SCH (22:21)
[2016-12-03] MEDS: HYDROMORPHONE HCL/PF 2MG/ML CPJ IV PRN (22:22)
[2016-12-03] MEDS ORDERED: FUROSEMIDE 40MG/4ML VIAL IVP NR (22:30)
[2016-12-04] VITALS (8 sets, daily range): BP systolic 112–176; BP diastolic 57–79
[2016-12-04] MEDS: DILTIAZEM HCL 60MG TABLET PO SCH ×5 (00:09→23:40)
[2016-12-04] MEDS: CEFTRIAXONE 1 G PREMIX 50 ML IV SCH ×2 (00:09→23:40)
[2016-12-04 00:31] LABS: CREATINE KINASE MB FRACTION 1.2 ng/mL (0.5-3.6); TROPONIN I < 0.02 ng/mL (0.00-0.04)
[2016-12-04] MEDS ORDERED: IPRA3AMP9 HHN (00:45)
[2016-12-04] MEDS ORDERED: FAMO20TA8 PO (00:45)
[2016-12-04] MEDS ORDERED: PHEN64.8 PO (00:45)
[2016-12-04] MEDS ORDERED: BECL8.7H NS (00:45)
[2016-12-04] MEDS ORDERED: TIOT18CA3 IH (00:45)
[2016-12-04] MEDS ORDERED: MONT10TA21 PO (00:45)
[2016-12-04] MEDS ORDERED: DIPH25CA83 PO (00:45)
[2016-12-04] MEDS ORDERED: METO-293 PO (00:45)
[2016-12-04] MEDS ORDERED: [UNRECOGNIZED DRUG - CODE] PO (01:02)
[2016-12-04] MEDS ORDERED: CALC-25 PO (01:02)
[2016-12-04] MEDS ORDERED: CALC667T5 PO (01:02)
[2016-12-04] MEDS ORDERED: PATAODR LEFTEYE (01:02)
[2016-12-04] MEDS ORDERED: ARFO15VI2 IH (01:02)
[2016-12-04] MEDS: IPRATROPIUM/ALBUTEROL 0.5-3(2.5)MG/3ML NEB HHN SCH ×6 (01:13→20:42)
[2016-12-04] MEDS: HYDROMORPHONE HCL/PF 2MG/ML CPJ IV PRN ×3 (01:33→21:34)
[2016-12-04] MEDS: LAMOTRIGINE 100MG TABLET PO SCH ×2 (05:16→17:08)
[2016-12-04] MEDS: METOCLOPRAMIDE HCL 5MG TABLET PO SCH ×4 (05:16→23:40)
[2016-12-04] MEDS ORDERED: NA PHOS,M-B/NA PHOS,DI-BA ENEMA 118ML PR PRN (08:45)
[2016-12-04] MEDS ORDERED: PHENOBARBITAL 60MG TABLET PO SCH (09:00)
[2016-12-04] MEDS ORDERED: AMIODARONE HCL 200 MG TABLET PO SCH (09:00)
[2016-12-04 10:11] LABS: HEMATOCRIT. 31.4 % (36.0-48.0); MEAN CORPUSCULAR HEMOGLOBIN 29.3 pg (28.0-32.0); MEAN CORPUSCULAR VOLUME 91.9 fL (81.0-99.0); MEAN PLATELET VOLUME 8.5 fl (7.4-10.4); PLATELET 171 x1000/uL (130-400); RED BLOOD CELL COUNT 3.42 mill/uL (4.2-5.4); RED CELL DISTRIBUTION WIDTH 25.2 % (11.6-14.6)
[2016-12-04 10:44] LABS: CARBON DIOXIDE 21 mEq/L (21-32); CHLORIDE 100 mEq/L (98-107); CREATINE KINASE MB FRACTION 1.1 ng/mL (0.5-3.6); TROPONIN I < 0.02 ng/mL (0.00-0.04)
[2016-12-04] MEDS: CALCIUM ACETATE 667MG CAPSULE PO SCH ×3 (11:32→18:10)
[2016-12-04] MEDS: SEVELAMER CARBONATE 800 MG TABLET PO SCH ×3 (11:33→18:10)
[2016-12-04] MEDS: PHENOBARBITAL 60MG TABLET PO SCH ×3 (11:33→17:08)
[2016-12-04] MEDS: OMEPRAZOLE 20MG CAPSULE EXTENDED RELEASE PO SCH (11:33)
[2016-12-04] MEDS: CINACALCET HCL 30MG TABLET PO SCH (11:34)
[2016-12-04] MEDS: CLOPIDOGREL 75MG TABLET PO SCH (11:34)
[2016-12-04] MEDS: ISOSORBIDE MONONITRATE 30MG TABLET SR 24HR PO SCH (11:35)
[2016-12-04] MEDS: CARVEDILOL 12.5MG TABLET PO SCH ×2 (11:36→20:29)
[2016-12-04] MEDS: ENOXAPARIN 30MG/0.3ML SYR SUBCUT SCH (11:37)
[2016-12-04] MEDS: FLUTICASONE/VILANTEROL 200-25 BLST.W.DEV ORI SCH (11:49)
[2016-12-04] MEDS: ONDANSETRON HCL 4MG/2ML VIAL IV PRN (14:29)
[2016-12-04] MEDS: DIPHENHYDRAMINE 50MG/ML VIAL IV PRN (15:46)
[2016-12-04] MEDS ORDERED: FUROSEMIDE 40MG/4ML VIAL IVP NR (16:00)
[2016-12-04] MEDS: MONTELUKAST SODIUM 10MG TABLET PO SCH (17:08)
[2016-12-04 18:30] LABS: PLATELET ESTIMATE NORMAL
[2016-12-04] MEDS: FAMOTIDINE 20MG TABLET PO SCH (20:28)
[2016-12-04] MEDS: AMIODARONE HCL 200 MG TABLET PO SCH (20:28)
[2016-12-04] MEDS ORDERED: IPRATROPIUM/ALBUTEROL 0.5-3(2.5)MG/3ML NEB HHN SCH (22:30)
[2016-12-05] VITALS: BP 136/77
[2016-12-05] MEDS: IPRATROPIUM/ALBUTEROL 0.5-3(2.5)MG/3ML NEB HHN SCH ×6 (00:30→20:57)
[2016-12-05 04:00] VITALS: BP 139/51
[2016-12-05] MEDS: HYDROMORPHONE HCL/PF 2MG/ML CPJ IV PRN ×4 (04:44→20:46)
[2016-12-05] MEDS: DILTIAZEM HCL 60MG TABLET PO SCH ×3 (05:27→17:10)
[2016-12-05] MEDS: METOCLOPRAMIDE HCL 5MG TABLET PO SCH ×3 (05:27→17:10)
[2016-12-05] MEDS: LAMOTRIGINE 100MG TABLET PO SCH ×2 (05:28→17:10)
[2016-12-05] MEDS: OMEPRAZOLE 20MG CAPSULE EXTENDED RELEASE PO SCH (06:40)
[2016-12-05 08:00] VITALS: BP 144/57
[2016-12-05 08:33] LABS: HEMATOCRIT. 31.5 % (36.0-48.0); HEMOGLOBIN. 10.3 g/dL (12.0-16.0); MEAN CORPUSCULAR HEMOGLOBIN 30.2 pg (28.0-32.0); MEAN CORPUSCULAR VOLUME 92.7 fL (81.0-99.0); MEAN PLATELET VOLUME 8.5 fl (7.4-10.4); PLATELET 166 x1000/uL (130-400); RED CELL DISTRIBUTION WIDTH 25.6 % (11.6-14.6)
[2016-12-05] MEDS: AMIODARONE HCL 200 MG TABLET PO SCH ×2 (09:55→20:46)
[2016-12-05] MEDS: CINACALCET HCL 30MG TABLET PO SCH (09:55)
[2016-12-05] MEDS: PHENOBARBITAL 60MG TABLET PO SCH ×3 (09:55→17:10)
[2016-12-05] MEDS: CLOPIDOGREL 75MG TABLET PO SCH (09:56)
[2016-12-05] MEDS: SEVELAMER CARBONATE 800 MG TABLET PO SCH ×3 (09:56→17:10)
[2016-12-05] MEDS: CALCIUM ACETATE 667MG CAPSULE PO SCH ×3 (09:56→17:10)
[2016-12-05] MEDS: ISOSORBIDE MONONITRATE 30MG TABLET SR 24HR PO SCH (09:56)
[2016-12-05] MEDS: CARVEDILOL 12.5MG TABLET PO SCH ×2 (09:56→20:46)
[2016-12-05] MEDS: ENOXAPARIN 30MG/0.3ML SYR SUBCUT SCH (09:57)
[2016-12-05] MEDS: FLUTICASONE/VILANTEROL 200-25 BLST.W.DEV ORI SCH (10:11)
[2016-12-05] MEDS: ONDANSETRON HCL 4MG/2ML VIAL IV PRN (10:53)
[2016-12-05] MEDS: DIPHENHYDRAMINE 50MG/ML VIAL IV PRN ×2 (10:58→17:09)
[2016-12-05 12:00] VITALS: BP 154/65
[2016-12-05 16:00] VITALS: BP 117/69
[2016-12-05] MEDS: MONTELUKAST SODIUM 10MG TABLET PO SCH (17:10)
[2016-12-05 18:00] LABS: PLATELET ESTIMATE NORMAL
[2016-12-05 20:00] VITALS: BP 128/72
[2016-12-05] MEDS: FAMOTIDINE 20MG TABLET PO SCH (20:46)
[2016-12-06] VITALS: BP 128/76
[2016-12-06] MEDS: METOCLOPRAMIDE HCL 5MG TABLET PO SCH (00:22)
[2016-12-06] MEDS: CEFTRIAXONE 1 G PREMIX 50 ML IV SCH (00:23)
[2016-12-06] MEDS: DILTIAZEM HCL 60MG TABLET PO SCH (00:23)
[2016-12-06] MEDS: DIPHENHYDRAMINE 50MG/ML VIAL IV PRN (00:23)
[2016-12-06] MEDS: IPRATROPIUM/ALBUTEROL 0.5-3(2.5)MG/3ML NEB HHN SCH ×2 (01:27→10:15)
[2016-12-06 08:00] VITALS: BP 142/59
[2016-12-06 09:50] LABS: HEMATOCRIT. 30.3 % (36.0-48.0); HEMOGLOBIN. 9.7 g/dL (12.0-16.0); MEAN CORPUSCULAR HEMOGLOBIN 29.2 pg (28.0-32.0); MEAN CORPUSCULAR VOLUME 91.4 fL (81.0-99.0); MEAN PLATELET VOLUME 8.6 fl (7.4-10.4); PLATELET 158 x1000/uL (130-400); RED BLOOD CELL COUNT 3.32 mill/uL (4.2-5.4); RED CELL DISTRIBUTION WIDTH 25.6 % (11.6-14.6)
[2016-12-06 10:50] VITALS: BP 132/79
[2016-12-06 12:00] VITALS: BP 139/63
[2016-12-06 14:12] VITALS: BP 132/79
[2016-12-06] MEDS: HYDROMORPHONE HCL/PF 2MG/ML CPJ IV PRN (14:12)
[2016-12-07 06:23] LABS: NUCLEATED RED BLOOD CELLS 1 /100 WBC; PLATELET ESTIMATE NORMAL
== END 2016-12-06 14:23 | DRG 291 ==
LOC: ER 15:00 → 7WST 18:41 → ENRESERV 19:57
PROVIDERS: ADMIT Internal Medicine Geriatric Medicine; ATTEND Internal Medicine Geriatric Medicine
DX: I13.2 Hypertensive heart and chronic kidney disease with heart failure and with stage 5 chronic kidney disease, or end stage renal disease (principal); J96.01 Acute respiratory failure with hypoxia; J18.9 Pneumonia, unspecified organism; E46 Unspecified protein-calorie malnutrition; E87.5 Hyperkalemia; I25.110 Atherosclerotic heart disease of native coronary artery with unstable angina pectoris; E87.8 Other disorders of electrolyte and fluid balance, not elsewhere classified; N18.6 End stage renal disease; I50.21 Acute systolic (congestive) heart failure; J44.0 Chronic obstructive pulmonary disease with (acute) lower respiratory infection; J44.1 Chronic obstructive pulmonary disease with (acute) exacerbation; I48.0 Paroxysmal atrial fibrillation; J20.9 Acute bronchitis, unspecified; M81.0 Age-related osteoporosis without current pathological fracture; B96.89 Other specified bacterial agents as the cause of diseases classified elsewhere; D63.8 Anemia in other chronic diseases classified elsewhere; E78.00 Pure hypercholesterolemia, unspecified; E78.5 Hyperlipidemia, unspecified; F02.80 Dementia in other diseases classified elsewhere, unspecified severity, without behavioral disturbance, psychotic disturbance, mood disturbance, and anxiety; G30.9 Alzheimer's disease, unspecified; G40.909 Epilepsy, unspecified, not intractable, without status epilepticus; G89.4 Chronic pain syndrome; L89.90 Pressure ulcer of unspecified site, unspecified stage; M15.9 Polyosteoarthritis, unspecified; Z85.118 Personal history of other malignant neoplasm of bronchus and lung; Z86.73 Personal history of transient ischemic attack (TIA), and cerebral infarction without residual deficits; Z90.3 Acquired absence of stomach [part of]; Z87.11 Personal history of peptic ulcer disease; Z91.15 Patient's noncompliance with renal dialysis; Z98.1 Arthrodesis status; Z98.61 Coronary angioplasty status; Z99.2 Dependence on renal dialysis; Z68.27 Body mass index [BMI] 27.0-27.9, adult; Z88.8 Allergy status to other drugs, medicaments and biological substances
CPT/HCPCS: 36415; 71010; 80048; 80053; 82553; 83036; 83735; 83880; 84443; 84484; 85025; 85610; 85651; 87040; 93005; 93970; 94640; 94664; 99285; J0696; J1170; J1200; J1650; J1940; J2405; J7050; J7620; J8597

== ENCOUNTER 2016-12-14 19:05 | Inpatient (IN) | payer MEDICARE, MEDICAID ==
[~2016-12-14] VITALS: Ht 167.6 cm; Wt 75.3 kg
[~2016-12-14 19:05] MED LIST changes: -AMIO100T4 PO; +ARFO15VI2 IH; +BECL8.7H NS; -BUME2TAB3 PO; +CALC-25 PO; -CALC0.253 PO; +CALC667T5 PO; +DIPH25CA83 PO; -DOCU-138 PO; -EPO10 IJ; +FAMO20TA8 PO; -FERR-63 PO; -FOLI1TAB87 PO; -HYDR-523 PO; +IPRA3AMP9 HHN; -LAMO200T PO; -LEVE500T19 PO; -LORA10TA7 PO; -LORA1TAB PO; +METO-293 PO; -METOLAZONE PO; -MINO2.5T19 PO; -NEBI20TA2 PO; -OMEP20TA2 PO; -ONDA4TAB5 PO; -OXYC-104 PO; +PATAODR LEFTEYE; -PHEN30TA42 PO; +PHEN64.8 PO; -PHOSLO PO; +POLY15DR55 OP; -RENAVITE PO; -TERA2CAP4 PO; +TIOT18CA3 IH; +[UNRECOGNIZED DRUG - CODE] PO
[2016-12-14] MEDS ORDERED: SODIUM CHLORIDE 0.9% 1000ML BAG (SEPSIS BOLUS) IV ONE (19:30)
[2016-12-14 20:17] LABS: BASOPHILS % 1.7 % (0.0-2.0); EOSINOPHILS % 0.5 % (0.0-5.0); HEMATOCRIT. 31.4 % (36.0-48.0); HEMOGLOBIN. 10.2 g/dL (12.0-16.0); LYMPHOCYTES % 7.6 % (20.0-50.0); MEAN CORPUSCULAR HEMOGLOBIN 29.5 pg (28.0-32.0); MEAN CORPUSCULAR VOLUME 90.7 fL (81.0-99.0); MONOCYTES % 11.2 % (2.0-8.0); PLATELET 261 x1000/uL (130-400); PROTHROMBIN TIME 10.5 sec (9.4-11.6); RED BLOOD CELL COUNT 3.46 mill/uL (4.2-5.4); RED CELL DISTRIBUTION WIDTH 25.8 % (11.6-14.6)
[2016-12-14 20:29] LABS: CARBON DIOXIDE 37 mEq/L (21-32); CHLORIDE 98 mEq/L (98-107); TROPONIN I < 0.02 ng/mL (0.00-0.04)
[2016-12-14 20:50] LABS: CLARITY URINE TURBID (CLEAR); COLOR URINE DARK YELLOW (YELLOW); GLUCOSE URINE NEGATIVE (NEGATIVE); KETONES URINE TRACE (NEGATIVE); LEUKOCYTE ESTERASE URINE 3+ (NEGATIVE); NITRITE URINE NEGATIVE (NEGATIVE); OCCULT BLOOD URINE 3+ (NEGATIVE); PROTEIN URINE 2+ (NEGATIVE); SPECIFIC GRAVITY URINE 1.022 (1.005-1.030); UROBILINOGEN URINE 0.2 E.U./dL (0.2-1.0)
[2016-12-14 21:01] LABS: PLATELET ESTIMATE NORMAL
[2016-12-14] MEDS ORDERED: CLOPIDOGREL 75MG TABLET PO ONE (21:15)
[2016-12-14] MEDS ORDERED: CEFTRIAXONE 1 G PREMIX 50 ML IV ONE (21:15)
[2016-12-14] MEDS ORDERED: FLUCONAZOLE 100MG TABLET PO ONE (21:30)
[2016-12-14 23:20] VITALS: BP 160/50
[2016-12-15] MEDS ORDERED: LACTULOSE 20 GM PO PRN (01:45)
[2016-12-15] MEDS ORDERED: ACETAMINOPHEN 325MG TABLET PO PRN (01:45)
[2016-12-15] MEDS ORDERED: CLONIDINE 0.1MG TABLET PO PRN (01:45)
[2016-12-15] MEDS ORDERED: POLYVINYL ALCOHOL OP PRN (01:45)
[2016-12-15] MEDS: HYDROCODONE/ACETAMINOPHEN 5/325MG TABLET PO PRN ×2 (02:14→08:59)
[2016-12-15] MEDS: IPRATROPIUM/ALBUTEROL 0.5-3(2.5)MG/3ML NEB HHN PRN ×2 (03:16→20:10)
[2016-12-15] MEDS ORDERED: POLYVINYL ALCOHOL OPHTH DROPS 15ML OP PRN (03:30)
[2016-12-15] MEDS ORDERED: LACTULOSE 20G/30ML UDC PO PRN (03:45)
[2016-12-15 04:00] VITALS: BP 129/70
[2016-12-15] MEDS: DILTIAZEM HCL 60MG TABLET PO SCH ×3 (06:20→18:11)
[2016-12-15] MEDS: SEVELAMER CARBONATE 800 MG TABLET PO SCH ×3 (07:50→18:10)
[2016-12-15] MEDS ORDERED: MEDICATION NOT ON FORMULARY EA (Calcium Acetate 667 MG) PO SCH (07:50)
[2016-12-15 08:00] VITALS: BP 160/70
[2016-12-15] MEDS ORDERED: HYDROCODONE/ACETAMINOPHEN 5/325MG TABLET PO NR (08:00)
[2016-12-15 08:09] LABS: HEMATOCRIT. 29.6 % (36.0-48.0); HEMOGLOBIN. 9.4 g/dL (12.0-16.0); MEAN CORPUSCULAR HEMOGLOBIN 29.5 pg (28.0-32.0); MEAN CORPUSCULAR VOLUME 92.5 fL (81.0-99.0); MEAN PLATELET VOLUME 8.4 fl (7.4-10.4); PLATELET 240 x1000/uL (130-400); RED CELL DISTRIBUTION WIDTH 25.7 % (11.6-14.6)
[2016-12-15] MEDS: FLUTICASONE PROPIONATE 50MCG/SPRAY BOTTLE BOTHNSTRLS SCH (08:40)
[2016-12-15] MEDS: ISOSORBIDE MONONITRATE 30MG TABLET SR 24HR PO SCH (08:40)
[2016-12-15] MEDS: METOCLOPRAMIDE HCL 10MG TABLET PO SCH ×4 (08:40→21:43)
[2016-12-15] MEDS: CALCIUM CARBONATE 1250MG TABLET (500MG ELEMENTAL CALCIUM) PO SCH (08:40)
[2016-12-15] MEDS: FAMOTIDINE 20MG TABLET PO SCH (08:52)
[2016-12-15] MEDS: AMIODARONE HCL 200 MG TABLET PO SCH (08:59)
[2016-12-15] MEDS ORDERED: AMLODIPINE 10MG TABLET PO SCH (09:00)
[2016-12-15] MEDS ORDERED: OLOPATADINE HCL LEFTEYE SCH (09:00)
[2016-12-15] MEDS ORDERED: CINACALCET HCL 30MG TABLET PO SCH (09:00)
[2016-12-15] MEDS ORDERED: FAMOTIDINE(NEO) 1MG/ML SUSP PO SCH (09:00)
[2016-12-15] MEDS ORDERED: METOPROLOL TARTRATE 25MG TABLET PO SCH (09:00)
[2016-12-15] MEDS: CALCIUM ACETATE 667MG CAPSULE PO SCH ×3 (09:00→18:10)
[2016-12-15] MEDS ORDERED: BECLOMETHASONE DIPROPIONATE NS SCH (09:00)
[2016-12-15] MEDS ORDERED: MEDICATION NOT ON FORMULARY EA (Tiotropium Bromide (Spiriva) 18 MCG) IH SCH (09:00)
[2016-12-15] MEDS: FUROSEMIDE 40MG/4ML VIAL IVP SCH (09:02)
[2016-12-15] MEDS: ENOXAPARIN 30MG/0.3ML SYR SUBCUT SCH (09:02)
[2016-12-15] MEDS: PHENOBARBITAL 60MG TABLET PO SCH ×2 (09:08→18:11)
[2016-12-15 09:13] LABS: CARBON DIOXIDE 30 mEq/L (21-32); CHLORIDE 100 mEq/L (98-107)
[2016-12-15] MEDS ORDERED: SORBITOL 70% SOLN 30ML PO PRN (10:00)
[2016-12-15] MEDS: IPRATROPIUM BROMIDE (0.02%) 0.5MG/2.5ML NEB HHN SCH ×2 (10:43→14:12)
[2016-12-15 10:50] LABS: NUCLEATED RED BLOOD CELLS 1 /100 WBC; PLATELET ESTIMATE NORMAL
[2016-12-15] MEDS: DIPHENHYDRAMINE 25MG CAPSULE PO PRN ×2 (10:54→18:10)
[2016-12-15 12:00] VITALS: BP 140/70
[2016-12-15 16:00] VITALS: BP 128/76
[2016-12-15] MEDS ORDERED: MONTELUKAST SODIUM 10MG TABLET PO SCH (18:00)
[2016-12-15 20:00] VITALS: BP 149/46
[2016-12-15] MEDS ORDERED: CEFTRIAXONE 1 G PREMIX 50 ML IV SCH (22:30)
[2016-12-16] VITALS: BP 125/66
[2016-12-16] MEDS: DILTIAZEM HCL 60MG TABLET PO SCH ×2 (01:05→06:14)
[2016-12-16] MEDS: HYDROCODONE/ACETAMINOPHEN 5/325MG TABLET PO PRN ×2 (01:12→13:08)
[2016-12-16] MEDS: IPRATROPIUM BROMIDE (0.02%) 0.5MG/2.5ML NEB HHN SCH ×3 (01:37→14:07)
[2016-12-16 04:00] VITALS: BP 133/70
[2016-12-16 06:27] LABS: BASOPHILS % 1.3 % (0.0-2.0); EOSINOPHILS % 1.5 % (0.0-5.0); HEMATOCRIT. 29.9 % (36.0-48.0); HEMOGLOBIN. 9.5 g/dL (12.0-16.0); LYMPHOCYTES % 10.6 % (20.0-50.0); MEAN CORPUSCULAR HEMOGLOBIN 29.4 pg (28.0-32.0); MEAN CORPUSCULAR VOLUME 92.5 fL (81.0-99.0); NEUTROPHILS % 72.6 % (40.0-76.0); PLATELET 238 x1000/uL (130-400); RED BLOOD CELL COUNT 3.24 mill/uL (4.2-5.4); RED CELL DISTRIBUTION WIDTH 25.7 % (11.6-14.6)
[2016-12-16 07:38] VITALS: BP 156/66
[2016-12-16] MEDS: ENOXAPARIN 30MG/0.3ML SYR SUBCUT SCH (08:54)
[2016-12-16] MEDS: FUROSEMIDE 40MG/4ML VIAL IVP SCH (08:56)
[2016-12-16] MEDS: SEVELAMER CARBONATE 800 MG TABLET PO SCH ×2 (08:57→12:57)
[2016-12-16] MEDS: CALCIUM ACETATE 667MG CAPSULE PO SCH ×2 (08:57→12:56)
[2016-12-16] MEDS: AMIODARONE HCL 200 MG TABLET PO SCH (08:58)
[2016-12-16] MEDS: PHENOBARBITAL 60MG TABLET PO SCH (08:58)
[2016-12-16] MEDS: FAMOTIDINE 20MG TABLET PO SCH (08:58)
[2016-12-16] MEDS: ISOSORBIDE MONONITRATE 30MG TABLET SR 24HR PO SCH (08:59)
[2016-12-16] MEDS: FLUTICASONE PROPIONATE 50MCG/SPRAY BOTTLE BOTHNSTRLS SCH (08:59)
[2016-12-16] MEDS ORDERED: AMLODIPINE 10MG TABLET PO SCH (09:00)
[2016-12-16] MEDS ORDERED: NAPHAZOLINE HCL/PHENIR MAL OPHTH SOLN 15ML LEFTEYE SCH (09:00)
[2016-12-16] MEDS: CALCIUM CARBONATE 1250MG TABLET (500MG ELEMENTAL CALCIUM) PO SCH (09:00)
[2016-12-16] MEDS: METOCLOPRAMIDE HCL 10MG TABLET PO SCH ×2 (09:16→12:56)
[2016-12-16 12:14] VITALS: BP 158/59
[2016-12-16] MEDS ORDERED: DILTIAZEM HCL 90MG TABLET PO SCH (12:30)
[2016-12-16] MEDS ORDERED: CARVEDILOL 3.125 MG TABLET PO SCH (13:00)
[2016-12-16] MEDS: DIPHENHYDRAMINE 25MG CAPSULE PO PRN (13:06)
[2016-12-16 16:04] VITALS: BP 124/67
[2016-12-16 16:12] VITALS: BP 124/67
== END 2016-12-16 16:38 | DRG 308 ==
LOC: ER 19:19 → 6WST 21:33 → EDBEDREQTM 21:40 → EDBEDREQ 21:40 → ENRESERV 22:02
PROVIDERS: ADMIT Internal Medicine Geriatric Medicine; ATTEND Internal Medicine Geriatric Medicine
PROC: 5A1D70Z Performance of Urinary Filtration, Intermittent, Less than 6 Hours Per Day (ICD-10-PCS; principal; 2016-12-14)
DX: I48.0 Paroxysmal atrial fibrillation (principal); I50.23 Acute on chronic systolic (congestive) heart failure; I13.2 Hypertensive heart and chronic kidney disease with heart failure and with stage 5 chronic kidney disease, or end stage renal disease; N18.6 End stage renal disease; D63.8 Anemia in other chronic diseases classified elsewhere; E44.1 Mild protein-calorie malnutrition; B37.9 Candidiasis, unspecified; E78.00 Pure hypercholesterolemia, unspecified; E78.5 Hyperlipidemia, unspecified; N39.0 Urinary tract infection, site not specified; G40.909 Epilepsy, unspecified, not intractable, without status epilepticus; G89.4 Chronic pain syndrome; I25.10 Atherosclerotic heart disease of native coronary artery without angina pectoris; J44.9 Chronic obstructive pulmonary disease, unspecified; F03.90 Unspecified dementia, unspecified severity, without behavioral disturbance, psychotic disturbance, mood disturbance, and anxiety; F32.9 Major depressive disorder, single episode, unspecified; M19.90 Unspecified osteoarthritis, unspecified site; M81.0 Age-related osteoporosis without current pathological fracture; Z86.73 Personal history of transient ischemic attack (TIA), and cerebral infarction without residual deficits; Z99.2 Dependence on renal dialysis; Z87.11 Personal history of peptic ulcer disease; Z88.6 Allergy status to analgesic agent; Z90.2 Acquired absence of lung [part of]; Z90.3 Acquired absence of stomach [part of]; Z95.5 Presence of coronary angioplasty implant and graft; Z98.1 Arthrodesis status; Z88.1 Allergy status to other antibiotic agents; Z79.899 Other long term (current) drug therapy; Z68.26 Body mass index [BMI] 26.0-26.9, adult; Z86.14 Personal history of Methicillin resistant Staphylococcus aureus infection
CPT/HCPCS: 36415; 71010; 80048; 80053; 81001; 83605; 83880; 84443; 84484; 85025; 85610; 86850; 86900; 87040; 87077; 87086; 87186; 93005; 93970; 94640; 96361; 96365; 99285; J0696; J1650; J1940; J7030; J7050; J7620; J8597; Q0163

== ENCOUNTER 2016-12-28 18:01 | Emergency (ER) | payer MEDICARE, MEDICAID ==
[~2016-12-28] VITALS: Ht 165.1 cm; Wt 86.0 kg
[~2016-12-28 18:01] MED LIST changes: -ARFO15VI2 IH
[2016-12-28] MEDS ORDERED: LORAZEPAM 2MG/ML CPJ ONE (18:23)
[2016-12-28] MEDS ORDERED: LORAZEPAM 2MG/ML CPJ IV PRN (18:45)
[2016-12-28 19:07] LABS: HEMATOCRIT. 33.8 % (36.0-48.0); HEMOGLOBIN. 10.9 g/dL (12.0-16.0); MEAN CORPUSCULAR HEMOGLOBIN 29.8 pg (28.0-32.0); MEAN CORPUSCULAR VOLUME 92.6 fL (81.0-99.0); MEAN PLATELET VOLUME 7.8 fl (7.4-10.4); PLATELET 182 x1000/uL (130-400); RED BLOOD CELL COUNT 3.65 mill/uL (4.2-5.4); RED CELL DISTRIBUTION WIDTH 28.7 % (11.6-14.6)
[2016-12-28 19:13] LABS: CHLORIDE 98 mEq/L (98-107)
[2016-12-28 19:23] LABS: CARBON DIOXIDE 32 mEq/L (21-32); ETHANOL BLOOD < 10 mg/dL; PHENOBARBITAL 7.8 ug/mL (15.0-40.0)
[2016-12-28] MEDS ORDERED: PHENOBARBITAL 60MG TABLET PO ONE (20:00)
[2016-12-28] MEDS ORDERED: AMLODIPINE 5MG TABLET PO ONE (20:30)
[2016-12-28] MEDS ORDERED: CARVEDILOL 3.125 MG TABLET PO ONE (20:30)
[2016-12-28 20:45] LABS: NUCLEATED RED BLOOD CELLS 1 /100 WBC; PLATELET ESTIMATE NORMAL
[2016-12-28] MEDS: CARVEDILOL 3.125 MG TABLET PO NR ×3 (20:45→20:51)
[2016-12-28 22:04] VITALS: BP 175/76
== END 2016-12-28 22:32 | disposition home or self-care (01) ==
LOC: ER 18:56
DX: R56.9 Unspecified convulsions (principal); I10 Essential (primary) hypertension; Z88.1 Allergy status to other antibiotic agents; Z88.6 Allergy status to analgesic agent
CPT/HCPCS: 36415; 80053; 80184; 80185; 85025; 96374; 99284; G0482; J2060

== ENCOUNTER 2017-01-22 02:02 | Emergency (ER) | payer MEDICARE, MEDICAID ==
[~2017-01-22] VITALS: Ht 165.1 cm; Wt 72.0 kg
[2017-01-22 03:29] LABS: BASOPHILS % 1.2 % (0.0-2.0); EOSINOPHILS % 0.9 % (0.0-5.0); HEMATOCRIT. 32.1 % (36.0-48.0); HEMOGLOBIN. 10.2 g/dL (12.0-16.0); LYMPHOCYTES % 7.1 % (20.0-50.0); MEAN CORPUSCULAR HEMOGLOBIN 29.9 pg (28.0-32.0); MEAN CORPUSCULAR VOLUME 94.3 fL (81.0-99.0); MONOCYTES % 9.4 % (2.0-8.0); NEUTROPHILS % 81.4 % (40.0-76.0); PLATELET 177 x1000/uL (130-400); RED CELL DISTRIBUTION WIDTH 29.1 % (11.6-14.6)
[2017-01-22 03:34] LABS: PROTHROMBIN TIME 10.8 sec (9.4-11.6)
[2017-01-22 03:43] LABS: CARBON DIOXIDE 34 mEq/L (21-32); CHLORIDE 98 mEq/L (98-107); TROPONIN I < 0.02 ng/mL (0.00-0.04)
[2017-01-22] MEDS ORDERED: METOPROLOL TARTRATE 25MG TABLET PO ONE (07:15)
[2017-01-22 08:24] VITALS: BP 156/89
== END 2017-01-22 09:25 | disposition home or self-care (01) ==
LOC: ER 02:09
DX: R00.2 Palpitations (principal); R56.9 Unspecified convulsions; J44.9 Chronic obstructive pulmonary disease, unspecified; I50.9 Heart failure, unspecified; I48.91 Unspecified atrial fibrillation; Z88.1 Allergy status to other antibiotic agents; Z88.6 Allergy status to analgesic agent; Z99.2 Dependence on renal dialysis
CPT/HCPCS: 36415; 71010; 80053; 83605; 83690; 84484; 85025; 85610; 93005; 99285

== ENCOUNTER 2017-04-01 00:42 | Inpatient (IN) | payer MEDICARE, MEDICAID ==
[~2017-04-01] VITALS: Ht 172.7 cm; Wt 86.6 kg
[2017-04-01] VITALS (57 sets, daily range): BP systolic 103–153; BP diastolic 59–96
[~2017-04-01 00:42] MED LIST changes: -METO25TA6 PO; -[UNRECOGNIZED DRUG - CODE] PO
[2017-04-01] MEDS ORDERED: ETOMIDATE 2MG/ML 10ML VIAL IV ONE ×2 (01:00→01:15)
[2017-04-01] MEDS ORDERED: VECURONIUM BROMIDE 10 MG/VIAL IV ONE ×2 (01:00→01:15)
[2017-04-01] MEDS ORDERED: STERILE WATER FOR INJECTION 10ML VIAL ONE (01:00)
[2017-04-01] MEDS ORDERED: ONDANSETRON HCL 4MG/2ML INJ IV STA (01:04)
[2017-04-01] MEDS ORDERED: SODIUM CHLORIDE 0.9% 1,000 ML IV ONE (01:04)
[2017-04-01] MEDS ORDERED: NOREPINEPHRINE 4 MG in DEXT 5% WATER 250 ML IV STA ×2 (01:13→01:16)
[2017-04-01] MEDS ORDERED: PROPOFOL 10MG/ML 100ML 100 ML IV ONE (01:15)
[2017-04-01 01:21] LABS: BASOPHILS % 1.4 % (0.0-2.0); EOSINOPHILS % 1.8 % (0.0-5.0); HEMATOCRIT. 33.3 % (36.0-48.0); HEMOGLOBIN. 10.3 g/dL (12.0-16.0); LYMPHOCYTES % 45.6 % (20.0-50.0); MEAN CORPUSCULAR HEMOGLOBIN 34.4 pg (28.0-32.0); MEAN CORPUSCULAR VOLUME 110.7 fL (81.0-99.0); MEAN PLATELET VOLUME 9.5 fl (7.4-10.4); MONOCYTES % 8.2 % (2.0-8.0); PLATELET 213 x1000/uL (130-400); RED BLOOD CELL COUNT 3.01 mill/uL (4.2-5.4); RED CELL DISTRIBUTION WIDTH 27.7 % (11.6-14.6)
[2017-04-01 01:29] LABS: INR 1.3; PROTHROMBIN TIME 13.4 sec (9.4-11.6)
[2017-04-01 01:38] LABS: CHLORIDE 96 mEq/L (98-107)
[2017-04-01 02:47] LABS: BG BASE EXCESS -1.4 mmol/L (-2.0-2.0); BG CARBOXYHEMOGLOBIN 0.2 % (0.5-1.5); BG DEOXYHEMOGLOBIN 0.3 % (0.0-5.0); BG FRACTION INSPIRED OXYGEN 100; BG HCO3 ACT 21.2 mmol/L (22.0-26.0); BG METHEMOGLOBIN 0.1 % (0.0-1.5); BG OXYGEN SATURATION 99.7 % (92.0-98.5); BG OXYHEMOGLOBIN 99.4 % (94.0-97.0); BG PCO2 28.4 mmHg (35.0-45.0); BG PO2 554.2 mmHg (75.0-100.0); BG SAMPLE SITE RIGHT RADIAL; BG TIDAL VOLUME(mL) 500 mL; BG TOTAL HEMOGLOBIN 10.3 g/dL (12.0-18.0); BG VENT MODE VENT - A/C; BG VENT RATE 18 set
[2017-04-01] MEDS ORDERED: ACETAMINOPHEN 325MG TABLET NG PRN (08:15)
[2017-04-01] MEDS ORDERED: PIPERACILLIN/TAZ 3.375G PREMIX 50 ML IV SCH (08:15)
[2017-04-01] MEDS ORDERED: ONDANSETRON HCL 4MG/2ML INJ IV PRN (08:15)
[2017-04-01] MEDS ORDERED: IPRATROPIUM/ALBUTEROL 0.5-3(2.5)MG/3ML NEB HHN SCH (08:15)
[2017-04-01] MEDS ORDERED: FAMOTIDINE 20MG/2ML VIAL IV NR (08:15)
[2017-04-01 09:12] LABS: BG BASE EXCESS -1.7 mmol/L (-2.0-2.0); BG CARBOXYHEMOGLOBIN 0.3 % (0.5-1.5); BG DEOXYHEMOGLOBIN 0.9 % (0.0-5.0); BG HCO3 ACT 21.3 mmol/L (22.0-26.0); BG METHEMOGLOBIN 0.1 % (0.0-1.5); BG OXYGEN SATURATION 99.1 % (92.0-98.5); BG OXYHEMOGLOBIN 98.7 % (94.0-97.0); BG PCO2 30.7 mmHg (35.0-45.0); BG PO2 186.3 mmHg (75.0-100.0); BG SAMPLE SITE RIGHT BRACHIAL; BG TIDAL VOLUME(mL) 500 mL; BG TOTAL HEMOGLOBIN 11.5 g/dL (12.0-18.0); BG VENT MODE VENT - A/C; BG VENT RATE 14 set
[2017-04-01] MEDS: DEXT 5%/0.9% NACL 1,000 ML IV SCH ×2 (09:13→21:54)
[2017-04-01] MEDS ORDERED: PROPOFOL 10MG/ML 100ML 100 ML IV PRN (09:15)
[2017-04-01] MEDS ORDERED: VANCOMYCIN 1500MG in DEXTROSE 5% WATER 250ML IV SCH (10:00)
[2017-04-01] MEDS ORDERED: IPRATROPIUM/ALBUTEROL 0.5-3(2.5)MG/3ML NEB HHN PRN (10:30)
[2017-04-01] MEDS: CLOPIDOGREL 75MG TABLET NG SCH (11:07)
[2017-04-01] MEDS: LAMOTRIGINE 100MG TABLET PO SCH ×2 (11:08→21:43)
[2017-04-01] MEDS: FOLIC ACID/VITAMIN B COMP W-C TABLET NG SCH (11:08)
[2017-04-01] MEDS: PHENOBARBITAL 60MG TABLET PO SCH ×2 (11:08→17:31)
[2017-04-01] MEDS: AMIODARONE HCL 200 MG TABLET NG SCH (11:08)
[2017-04-01] MEDS: PIPERACILLIN/TAZ 2.25G PREMIX 50 ML IV SCH ×2 (11:09→18:36)
[2017-04-01] MEDS: ENOXAPARIN 30MG/0.3ML SYR SUBCUT SCH (11:09)
[2017-04-01] MEDS: BUDESONIDE 0.5MG/2ML NEB HHN SCH ×2 (11:16→20:13)
[2017-04-01] MEDS: IPRATROPIUM BROMIDE (0.02%) 0.5MG/2.5ML NEB HHN SCH ×2 (11:16→20:13)
[2017-04-01] MEDS ORDERED: DIGOXIN 500MCG/2ML AMP IV NR ×2 (15:15→19:15)
[2017-04-01] MEDS ORDERED: NOREPINEPHRINE 4 MG in SODIUM CHLORIDE 0.9% 250 ML IV PRN (16:00)
[2017-04-01 16:42] LABS: CREATINE KINASE MB FRACTION 1.2 ng/mL (0.5-3.6)
[2017-04-02] VITALS (73 sets, daily range): BP systolic 99–139; BP diastolic 52–92
[2017-04-02] MEDS: IPRATROPIUM BROMIDE (0.02%) 0.5MG/2.5ML NEB HHN SCH ×6 (00:24→20:16)
[2017-04-02] MEDS: PHENOBARBITAL 60MG TABLET PO SCH ×3 (04:02→18:19)
[2017-04-02] MEDS: PIPERACILLIN/TAZ 2.25G PREMIX 50 ML IV SCH ×3 (04:02→18:19)
[2017-04-02] MEDS: DEXT 5%/0.9% NACL 1,000 ML IV SCH ×2 (07:24→23:59)
[2017-04-02] MEDS ORDERED: PROPOFOL 10MG/ML 100ML 100 ML IV PRN (07:45)
[2017-04-02 08:47] LABS: BG BASE EXCESS 3.5 mmol/L (-2.0-2.0); BG CARBOXYHEMOGLOBIN 0.6 % (0.5-1.5); BG DEOXYHEMOGLOBIN 0.9 % (0.0-5.0); BG FRACTION INSPIRED OXYGEN 35; BG HCO3 ACT 26.6 mmol/L (22.0-26.0); BG METHEMOGLOBIN 0.2 % (0.0-1.5); BG OXYGEN SATURATION 99.1 % (92.0-98.5); BG OXYHEMOGLOBIN 98.3 % (94.0-97.0); BG PCO2 34.6 mmHg (35.0-45.0); BG PH 7.503 (7.350-7.450); BG PO2 176.1 mmHg (75.0-100.0); BG SAMPLE SITE RIGHT RADIAL; BG TIDAL VOLUME(mL) 500 mL; BG TOTAL HEMOGLOBIN 10.5 g/dL (12.0-18.0); BG VENT MODE VENT - A/C; BG VENT RATE 12 set
[2017-04-02] MEDS: BUDESONIDE 0.5MG/2ML NEB HHN SCH ×2 (09:02→20:16)
[2017-04-02 09:08] LABS: HEMATOCRIT. 32.3 % (36.0-48.0); HEMOGLOBIN. 10.4 g/dL (12.0-16.0); MEAN CORPUSCULAR HEMOGLOBIN 34.8 pg (28.0-32.0); MEAN CORPUSCULAR VOLUME 108.6 fL (81.0-99.0); MEAN PLATELET VOLUME 8.8 fl (7.4-10.4); PLATELET 168 x1000/uL (130-400); RED BLOOD CELL COUNT 2.98 mill/uL (4.2-5.4); RED CELL DISTRIBUTION WIDTH 28.2 % (11.6-14.6)
[2017-04-02] MEDS ORDERED: VANCOMYCIN 1 G PREMIX 200 ML IV SCH (10:00)
[2017-04-02] MEDS: LAMOTRIGINE 100MG TABLET PO SCH ×2 (10:48→22:38)
[2017-04-02] MEDS: ENOXAPARIN 30MG/0.3ML SYR SUBCUT SCH (10:48)
[2017-04-02] MEDS: CLOPIDOGREL 75MG TABLET NG SCH (10:48)
[2017-04-02] MEDS: AMIODARONE HCL 200 MG TABLET NG SCH (10:48)
[2017-04-02] MEDS: FAMOTIDINE 20MG/2ML VIAL IV SCH (10:48)
[2017-04-02] MEDS: FOLIC ACID/VITAMIN B COMP W-C TABLET NG SCH (10:48)
[2017-04-02 11:33] LABS: BG BASE EXCESS 0.1 mmol/L (-2.0-2.0); BG CARBOXYHEMOGLOBIN 0.3 % (0.5-1.5); BG DEOXYHEMOGLOBIN 1.2 % (0.0-5.0); BG FRACTION INSPIRED OXYGEN 35; BG HCO3 ACT 24.1 mmol/L (22.0-26.0); BG METHEMOGLOBIN 0.2 % (0.0-1.5); BG OXYGEN SATURATION 98.8 % (92.0-98.5); BG OXYHEMOGLOBIN 98.3 % (94.0-97.0); BG PCO2 36.5 mmHg (35.0-45.0); BG PH 7.437 (7.350-7.450); BG PO2 151.8 mmHg (75.0-100.0); BG PRESSURE SUPPORT 8; BG SAMPLE SITE RIGHT RADIAL; BG VENT MODE VENT - CPAP
[2017-04-02 12:34] LABS: NUCLEATED RED BLOOD CELLS 4 /100 WBC; PLATELET ESTIMATE NORMAL
[2017-04-02] MEDS: HYDROMORPHONE HCL/PF 2MG/ML CPJ IV PRN ×2 (13:45→23:40)
[2017-04-02] MEDS: DILTIAZEM HCL 30MG TABLET NG SCH ×2 (13:45→22:39)
[2017-04-03] VITALS (63 sets, daily range): BP systolic 91–159; BP diastolic 47–94
[2017-04-03] MEDS: IPRATROPIUM BROMIDE (0.02%) 0.5MG/2.5ML NEB HHN SCH ×6 (00:18→20:23)
[2017-04-03] MEDS: PHENOBARBITAL 60MG TABLET PO SCH ×3 (02:58→17:45)
[2017-04-03] MEDS: PIPERACILLIN/TAZ 2.25G PREMIX 50 ML IV SCH ×3 (02:58→17:45)
[2017-04-03 05:54] LABS: HEMATOCRIT. 27.9 % (36.0-48.0); HEMOGLOBIN. 9.2 g/dL (12.0-16.0); MEAN CORPUSCULAR HEMOGLOBIN 36.1 pg (28.0-32.0); MEAN CORPUSCULAR VOLUME 109.4 fL (81.0-99.0); MEAN PLATELET VOLUME 8.7 fl (7.4-10.4); PLATELET 147 x1000/uL (130-400); RED BLOOD CELL COUNT 2.55 mill/uL (4.2-5.4); RED CELL DISTRIBUTION WIDTH 27.2 % (11.6-14.6)
[2017-04-03 07:18] LABS: ATYPICAL LYMPHOCYTES 1; NUCLEATED RED BLOOD CELLS 2 /100 WBC; PLATELET ESTIMATE NORMAL
[2017-04-03] MEDS: BUDESONIDE 0.5MG/2ML NEB HHN SCH ×2 (08:36→20:23)
[2017-04-03] MEDS ORDERED: DIPHENHYDRAMINE 50MG/ML VIAL IV NR (09:15)
[2017-04-03] MEDS ORDERED: DILTIAZEM HCL 30MG TABLET NG SCH (10:00)
[2017-04-03] MEDS ORDERED: DILTIAZEM HCL 60MG TABLET NG SCH (10:00)
[2017-04-03] MEDS: AMIODARONE HCL 200 MG TABLET NG SCH (11:45)
[2017-04-03] MEDS: CLOPIDOGREL 75MG TABLET NG SCH (11:45)
[2017-04-03] MEDS: FOLIC ACID/VITAMIN B COMP W-C TABLET NG SCH (11:45)
[2017-04-03] MEDS: FAMOTIDINE 20MG/2ML VIAL IV SCH (11:46)
[2017-04-03] MEDS: LAMOTRIGINE 100MG TABLET PO SCH ×2 (11:46→21:05)
[2017-04-03] MEDS: ENOXAPARIN 30MG/0.3ML SYR SUBCUT SCH (11:47)
[2017-04-03 14:33] LABS: PHOSPHORUS 2.8 mg/dL (2.5-4.9)
[2017-04-03] MEDS: DILTIAZEM HCL 60MG TABLET NG SCH (17:45)
[2017-04-03] MEDS: HYDROMORPHONE HCL/PF 2MG/ML CPJ IV PRN (18:47)
[2017-04-03] MEDS: EPOETIN ALFA 4000UNITS/ML VIAL SUBCUT SCH (21:49)
[2017-04-03] MEDS: DIPHENHYDRAMINE 25MG CAPSULE PO PRN ×4 (22:00→22:12)
[2017-04-04] VITALS (37 sets, daily range): BP systolic 88–150; BP diastolic 56–82
[2017-04-04] MEDS: IPRATROPIUM BROMIDE (0.02%) 0.5MG/2.5ML NEB HHN SCH ×6 (00:22→20:00)
[2017-04-04] MEDS: PIPERACILLIN/TAZ 2.25G PREMIX 50 ML IV SCH ×3 (02:14→17:26)
[2017-04-04 05:45] LABS: BASOPHILS % 0.9 % (0.0-2.0); EOSINOPHILS % 2.5 % (0.0-5.0); HEMATOCRIT. 28.3 % (36.0-48.0); HEMOGLOBIN. 9.3 g/dL (12.0-16.0); LYMPHOCYTES % 21.2 % (20.0-50.0); MEAN CORPUSCULAR HEMOGLOBIN 35.8 pg (28.0-32.0); MEAN CORPUSCULAR VOLUME 109.5 fL (81.0-99.0); MEAN PLATELET VOLUME 8.3 fl (7.4-10.4); MONOCYTES % 9.4 % (2.0-8.0); PLATELET 147 x1000/uL (130-400); RED BLOOD CELL COUNT 2.59 mill/uL (4.2-5.4); RED CELL DISTRIBUTION WIDTH 28.2 % (11.6-14.6)
[2017-04-04] MEDS: DILTIAZEM HCL 60MG TABLET NG SCH ×4 (07:10→18:00)
[2017-04-04] MEDS: BUDESONIDE 0.5MG/2ML NEB HHN SCH (07:47)
[2017-04-04] MEDS ORDERED: SORBITOL 70% SOLN 30ML PO NR (08:00)
[2017-04-04] MEDS ORDERED: NA PHOS,M-B/NA PHOS,DI-BA ENEMA 118ML PR NR (08:00)
[2017-04-04] MEDS: TRIAMCINOLONE ACETONIDE 0.5% CREAM 15GM TOP SCH ×2 (09:00→21:39)
[2017-04-04] MEDS: PHENOBARBITAL 60MG TABLET PO SCH ×3 (10:00→18:00)
[2017-04-04] MEDS: CLOPIDOGREL 75MG TABLET NG SCH (10:14)
[2017-04-04] MEDS: FAMOTIDINE 20MG/2ML VIAL IV SCH (10:14)
[2017-04-04] MEDS: FOLIC ACID/VITAMIN B COMP W-C TABLET PO SCH (10:15)
[2017-04-04] MEDS: LAMOTRIGINE 100MG TABLET PO SCH ×2 (10:15→21:39)
[2017-04-04] MEDS: ENOXAPARIN 30MG/0.3ML SYR SUBCUT SCH (10:16)
[2017-04-04] MEDS ORDERED: VANCOMYCIN 750 MG PREMIX 150 ML IV SCH ×2 (12:00→17:30)
[2017-04-04] MEDS: ACETAMINOPHEN 650MG/20.3ML UDC NG PRN (16:23)
[2017-04-04] MEDS: DIPHENHYDRAMINE 25MG CAPSULE PO PRN (16:24)
[2017-04-05] VITALS (12 sets, daily range): BP systolic 116–145; BP diastolic 61–85
[2017-04-05] MEDS: DILTIAZEM HCL 60MG TABLET NG SCH ×6 (00:08→23:41)
[2017-04-05] MEDS: IPRATROPIUM BROMIDE (0.02%) 0.5MG/2.5ML NEB HHN SCH ×6 (01:15→20:52)
[2017-04-05] MEDS: PIPERACILLIN/TAZ 2.25G PREMIX 50 ML IV SCH ×3 (02:24→17:52)
[2017-04-05] MEDS: PHENOBARBITAL 60MG TABLET PO SCH ×3 (02:47→18:46)
[2017-04-05] MEDS: DIPHENHYDRAMINE 25MG CAPSULE PO PRN ×2 (03:09→13:52)
[2017-04-05] MEDS: FAMOTIDINE 20MG/2ML VIAL IV SCH (08:19)
[2017-04-05] MEDS: CLOPIDOGREL 75MG TABLET NG SCH (08:19)
[2017-04-05] MEDS: LAMOTRIGINE 100MG TABLET PO SCH ×2 (08:20→21:16)
[2017-04-05] MEDS: FOLIC ACID/VITAMIN B COMP W-C TABLET PO SCH (08:20)
[2017-04-05] MEDS: ENOXAPARIN 30MG/0.3ML SYR SUBCUT SCH (08:24)
[2017-04-05] MEDS: TRIAMCINOLONE ACETONIDE 0.5% CREAM 15GM TOP SCH ×2 (09:00→21:15)
[2017-04-05] MEDS: FERROUS SULFATE 325MG TABLET PO SCH ×2 (10:30→13:59)
[2017-04-05 14:29] LABS: BASOPHILS % 1.5 % (0.0-2.0); EOSINOPHILS % 2.2 % (0.0-5.0); HEMOGLOBIN. 9.4 g/dL (12.0-16.0); LYMPHOCYTES % 23.6 % (20.0-50.0); MEAN CORPUSCULAR VOLUME 110.6 fL (81.0-99.0); MEAN PLATELET VOLUME 8.4 fl (7.4-10.4); MONOCYTES % 7.6 % (2.0-8.0); NEUTROPHILS % 65.1 % (40.0-76.0); PLATELET 138 x1000/uL (130-400); RED BLOOD CELL COUNT 2.62 mill/uL (4.2-5.4)
[2017-04-05] MEDS: ACETAMINOPHEN 650MG/20.3ML UDC NG PRN (15:47)
[2017-04-05] MEDS: EPOETIN ALFA 4000UNITS/ML VIAL SUBCUT SCH (21:16)
[2017-04-06] VITALS (12 sets, daily range): BP systolic 126–154; BP diastolic 69–87
[2017-04-06] MEDS: IPRATROPIUM BROMIDE (0.02%) 0.5MG/2.5ML NEB HHN SCH ×6 (00:42→21:09)
[2017-04-06] MEDS: PIPERACILLIN/TAZ 2.25G PREMIX 50 ML IV SCH ×2 (01:13→09:12)
[2017-04-06] MEDS: PHENOBARBITAL 60MG TABLET PO SCH ×2 (01:13→09:12)
[2017-04-06] MEDS: DILTIAZEM HCL 60MG TABLET NG SCH ×3 (06:01→17:02)
[2017-04-06] MEDS: FAMOTIDINE 20MG/2ML VIAL IV SCH (08:00)
[2017-04-06] MEDS: CLOPIDOGREL 75MG TABLET NG SCH (08:00)
[2017-04-06] MEDS: FOLIC ACID/VITAMIN B COMP W-C TABLET PO SCH (08:00)
[2017-04-06] MEDS: LAMOTRIGINE 100MG TABLET PO SCH ×2 (08:00→20:55)
[2017-04-06 08:15] LABS: BASOPHILS % 1.4 % (0.0-2.0); EOSINOPHILS % 2.3 % (0.0-5.0); HEMATOCRIT. 28.8 % (36.0-48.0); HEMOGLOBIN. 9.2 g/dL (12.0-16.0); LYMPHOCYTES % 19.1 % (20.0-50.0); MEAN CORPUSCULAR HEMOGLOBIN 34.8 pg (28.0-32.0); MEAN PLATELET VOLUME 8.3 fl (7.4-10.4); MONOCYTES % 9.9 % (2.0-8.0); NEUTROPHILS % 67.3 % (40.0-76.0); PLATELET 148 x1000/uL (130-400); RED BLOOD CELL COUNT 2.64 mill/uL (4.2-5.4); RED CELL DISTRIBUTION WIDTH 28.2 % (11.6-14.6)
[2017-04-06] MEDS: ENOXAPARIN 30MG/0.3ML SYR SUBCUT SCH (09:00)
[2017-04-06] MEDS: TRIAMCINOLONE ACETONIDE 0.5% CREAM 15GM TOP SCH ×2 (09:14→20:56)
[2017-04-06] MEDS: DIPHENHYDRAMINE 25MG CAPSULE PO PRN (09:17)
[2017-04-06] MEDS: SEVELAMER CARBONATE 800 MG TABLET PO SCH ×2 (11:29→17:01)
[2017-04-06] MEDS ORDERED: AMIKACIN 500MG in SODIUM CHLORIDE 0.9% 100ML IV NR (12:00)
[2017-04-06] MEDS ORDERED: VERAPAMIL HCL 2.5 MG/1 ML 2ML VIAL IV PRN (18:45)
[2017-04-06] MEDS: ACETAMINOPHEN 650MG/20.3ML UDC NG PRN (22:53)
[2017-04-07] VITALS (14 sets, daily range): BP systolic 109–152; BP diastolic 51–108
[2017-04-07] MEDS: DILTIAZEM HCL 60MG TABLET NG SCH ×2 (00:40→05:50)
[2017-04-07] MEDS: IPRATROPIUM BROMIDE (0.02%) 0.5MG/2.5ML NEB HHN SCH ×6 (00:49→20:59)
[2017-04-07] MEDS: LAMOTRIGINE 100MG TABLET PO SCH ×2 (08:02→20:34)
[2017-04-07] MEDS: ACETAMINOPHEN 650MG/20.3ML UDC NG PRN (08:02)
[2017-04-07] MEDS: CLOPIDOGREL 75MG TABLET NG SCH (08:02)
[2017-04-07] MEDS: ENOXAPARIN 30MG/0.3ML SYR SUBCUT SCH (08:03)
[2017-04-07] MEDS: SEVELAMER CARBONATE 800 MG TABLET PO SCH ×3 (08:03→17:20)
[2017-04-07] MEDS: FAMOTIDINE 20MG/2ML VIAL IV SCH (08:03)
[2017-04-07] MEDS: FERROUS SULFATE 325MG TABLET PO SCH (08:03)
[2017-04-07] MEDS: TRIAMCINOLONE ACETONIDE 0.5% CREAM 15GM TOP SCH ×2 (08:03→20:16)
[2017-04-07] MEDS: FOLIC ACID/VITAMIN B COMP W-C TABLET PO SCH (08:03)
[2017-04-07 08:55] LABS: HEMATOCRIT. 30.9 % (36.0-48.0); HEMOGLOBIN. 9.7 g/dL (12.0-16.0); MEAN CORPUSCULAR HEMOGLOBIN 34.9 pg (28.0-32.0); MEAN CORPUSCULAR VOLUME 111.2 fL (81.0-99.0); MEAN PLATELET VOLUME 9.1 fl (7.4-10.4); PLATELET 189 x1000/uL (130-400); RED BLOOD CELL COUNT 2.78 mill/uL (4.2-5.4)
[2017-04-07] MEDS: NEBIVOLOL HCL 5 MG TABLET PO SCH ×2 (08:56→18:00)
[2017-04-07] MEDS ORDERED: CARVEDILOL 3.125 MG TABLET PO SCH (09:00)
[2017-04-07 11:17] LABS: NUCLEATED RED BLOOD CELLS 2 /100 WBC; PLATELET ESTIMATE NORMAL
[2017-04-07] MEDS: DILTIAZEM HCL 90MG TABLET NG SCH ×2 (12:16→18:00)
[2017-04-07 13:24] LABS: BG BASE EXCESS -7.3 mmol/L (-2.0-2.0); BG DEOXYHEMOGLOBIN 45.4 % (0.0-5.0); BG FRACTION INSPIRED OXYGEN 21; BG HCO3 ACT 21.1 mmol/L (22.0-26.0); BG METHEMOGLOBIN 0.2 % (0.0-1.5); BG OXYHEMOGLOBIN 53.4 % (94.0-97.0); BG PCO2 56.9 mmHg (35.0-45.0); BG PH 7.188 (7.350-7.450); BG PO2 34.7 mmHg (75.0-100.0); BG SAMPLE SITE RIGHT RADIAL; BG TOTAL HEMOGLOBIN 11.3 g/dL (12.0-18.0); BG VENT MODE ROOM AIR
[2017-04-07 14:10] LABS: BG BASE EXCESS -6.5 mmol/L (-2.0-2.0); BG CARBOXYHEMOGLOBIN 1.5 % (0.5-1.5); BG DEOXYHEMOGLOBIN 5.9 % (0.0-5.0); BG OXYHEMOGLOBIN 92.6 % (94.0-97.0); BG PH 7.196 (7.350-7.450); BG SAMPLE SITE RIGHT RADIAL; BG TOTAL HEMOGLOBIN 11.7 g/dL (12.0-18.0); BG VENT MODE NASAL CANNULA
[2017-04-07 18:13] LABS: BG BASE EXCESS -4.1 mmol/L (-2.0-2.0); BG CARBOXYHEMOGLOBIN 0.8 % (0.5-1.5); BG DEOXYHEMOGLOBIN 4.1 % (0.0-5.0); BG FRACTION INSPIRED OXYGEN 28; BG HCO3 ACT 23.1 mmol/L (22.0-26.0); BG METHEMOGLOBIN 0.1 % (0.0-1.5); BG OXYGEN SATURATION 95.9 % (92.0-98.5); BG PCO2 51.8 mmHg (35.0-45.0); BG PH 7.267 (7.350-7.450); BG PO2 92.9 mmHg (75.0-100.0); BG PRESSURE SUPPORT 7; BG SAMPLE SITE RIGHT BRACHIAL; BG TOTAL HEMOGLOBIN 11.4 g/dL (12.0-18.0); BG VENT MODE MASK - BIPAP; BG VENT RATE 14 set
[2017-04-08] VITALS (14 sets, daily range): BP systolic 106–140; BP diastolic 54–85
[2017-04-08] MEDS: IPRATROPIUM BROMIDE (0.02%) 0.5MG/2.5ML NEB HHN SCH ×5 (00:53→16:04)
[2017-04-08] MEDS: NEBIVOLOL HCL 5 MG TABLET PO SCH (06:00)
[2017-04-08] MEDS: DILTIAZEM HCL 90MG TABLET NG SCH ×3 (06:00→12:28)
[2017-04-08] MEDS: CLOPIDOGREL 75MG TABLET NG SCH (08:10)
[2017-04-08] MEDS: LAMOTRIGINE 100MG TABLET PO SCH (08:10)
[2017-04-08] MEDS: FOLIC ACID/VITAMIN B COMP W-C TABLET PO SCH (08:10)
[2017-04-08] MEDS: FERROUS SULFATE 325MG TABLET PO SCH (08:11)
[2017-04-08] MEDS: SEVELAMER CARBONATE 800 MG TABLET PO SCH ×2 (08:11→12:25)
[2017-04-08] MEDS: FAMOTIDINE 20MG/2ML VIAL IV SCH (08:11)
[2017-04-08] MEDS: ENOXAPARIN 30MG/0.3ML SYR SUBCUT SCH (08:12)
[2017-04-08] MEDS: TRIAMCINOLONE ACETONIDE 0.5% CREAM 15GM TOP SCH (09:00)
[2017-04-08] MEDS ORDERED: ATENOLOL 25MG TABLET PO ONE (09:15)
[2017-04-08 09:27] LABS: BG BASE EXCESS 0.6 mmol/L (-2.0-2.0); BG CARBOXYHEMOGLOBIN 0.6 % (0.5-1.5); BG DEOXYHEMOGLOBIN 1.5 % (0.0-5.0); BG FRACTION INSPIRED OXYGEN 28; BG HCO3 ACT 26.3 mmol/L (22.0-26.0); BG METHEMOGLOBIN 0.1 % (0.0-1.5); BG OXYGEN SATURATION 98.5 % (92.0-98.5); BG OXYHEMOGLOBIN 97.8 % (94.0-97.0); BG PCO2 46.9 mmHg (35.0-45.0); BG PH 7.366 (7.350-7.450); BG PO2 135.6 mmHg (75.0-100.0); BG SAMPLE SITE RIGHT RADIAL; BG TOTAL HEMOGLOBIN 10.4 g/dL (12.0-18.0); BG VENT MODE NASAL CANNULA
[2017-04-08] MEDS ORDERED: NEBIVOLOL HCL 5 MG TABLET PO NR (09:30)
[2017-04-08] MEDS ORDERED: HYDROCODONE/ACETAMINOPHEN 5/325MG TABLET PO PRN (09:30)
[2017-04-08] MEDS ORDERED: HYDROMORPHONE HCL/PF 2MG/ML CPJ IM NR (09:30)
[2017-04-08 10:21] LABS: HEMATOCRIT. 32.9 % (36.0-48.0); HEMOGLOBIN. 10.6 g/dL (12.0-16.0); MEAN CORPUSCULAR HEMOGLOBIN 35.2 pg (28.0-32.0); MEAN CORPUSCULAR VOLUME 109.7 fL (81.0-99.0); MEAN PLATELET VOLUME 8.7 fl (7.4-10.4); PLATELET 174 x1000/uL (130-400); RED CELL DISTRIBUTION WIDTH 27.8 % (11.6-14.6)
[2017-04-08 10:43] LABS: CHLORIDE 99 mEq/L (98-107)
[2017-04-08] MEDS: ACETAMINOPHEN 650MG/20.3ML UDC NG PRN (11:11)
[2017-04-08 11:59] LABS: NUCLEATED RED BLOOD CELLS 2 /100 WBC; PLATELET ESTIMATE NORMAL
[2017-04-08] MEDS: DIPHENHYDRAMINE 25MG CAPSULE PO PRN (12:25)
[2017-04-08] MEDS ORDERED: VANCOMYCIN 1250MG in DEXTROSE 5% WATER 250ML IV NR (13:00)
[2017-04-08] MEDS ORDERED: GENTAMICIN SULFATE 160 MG in SODIUM CHLORIDE 0.9% 100 ML IV NR (15:00)
[2017-04-08] MEDS ORDERED: NEBIVOLOL HCL 5 MG TABLET PO SCH (18:00)
[2017-04-09] MEDS ORDERED: ATENOLOL 25MG TABLET PO ONE (09:00)
[2017-04-09] MEDS ORDERED: AMIKACIN 500MG in SODIUM CHLORIDE 0.9% 100ML IV NR (12:00)
== END 2017-04-08 16:50 | DRG 871 ==
LOC: ER 00:42 → MICUNO 05:04 → EDBEDREQ 05:37 → ENRESERV 06:26 → 3WST 04-04 17:23
PROVIDERS: ADMIT Internal Medicine Geriatric Medicine; ATTEND Internal Medicine Geriatric Medicine
PROC: 5A1945Z Respiratory Ventilation, 24-96 Consecutive Hours (ICD-10-PCS; principal; 2017-04-01)
PROC: 0BH17EZ Insertion of Endotracheal Airway into Trachea, Via Natural or Artificial Opening (ICD-10-PCS; 2017-04-01)
PROC: 5A09357 Assistance with Respiratory Ventilation, Less than 24 Consecutive Hours, Continuous Positive Airway Pressure (ICD-10-PCS; 2017-04-07)
PROC: 06HY33Z Insertion of Infusion Device into Lower Vein, Percutaneous Approach (ICD-10-PCS; 2017-04-07)
PROC: 0D9670Z Drainage of Stomach with Drainage Device, Via Natural or Artificial Opening (ICD-10-PCS; 2017-04-07)
DX: A41.9 Sepsis, unspecified organism (principal); N18.6 End stage renal disease; J96.01 Acute respiratory failure with hypoxia; R65.21 Severe sepsis with septic shock; J18.9 Pneumonia, unspecified organism; G93.41 Metabolic encephalopathy; E44.0 Moderate protein-calorie malnutrition; I13.2 Hypertensive heart and chronic kidney disease with heart failure and with stage 5 chronic kidney disease, or end stage renal disease; E87.5 Hyperkalemia; I50.23 Acute on chronic systolic (congestive) heart failure; I42.0 Dilated cardiomyopathy; C34.90 Malignant neoplasm of unspecified part of unspecified bronchus or lung; N39.0 Urinary tract infection, site not specified; J44.0 Chronic obstructive pulmonary disease with (acute) lower respiratory infection; Q27.30 Arteriovenous malformation, site unspecified; I27.20 Pulmonary hypertension, unspecified; G30.9 Alzheimer's disease, unspecified; F02.80 Dementia in other diseases classified elsewhere, unspecified severity, without behavioral disturbance, psychotic disturbance, mood disturbance, and anxiety; G40.909 Epilepsy, unspecified, not intractable, without status epilepticus; B96.1 Klebsiella pneumoniae [K. pneumoniae] as the cause of diseases classified elsewhere; B96.89 Other specified bacterial agents as the cause of diseases classified elsewhere; G89.4 Chronic pain syndrome; I25.10 Atherosclerotic heart disease of native coronary artery without angina pectoris; I34.0 Nonrheumatic mitral (valve) insufficiency; I45.10 Unspecified right bundle-branch block; I48.0 Paroxysmal atrial fibrillation; Z16.24 Resistance to multiple antibiotics; I48.2 Chronic atrial fibrillation; K21.9 Gastro-esophageal reflux disease without esophagitis; K59.00 Constipation, unspecified; Y71.2 Prosthetic and other implants, materials and accessory cardiovascular devices associated with adverse incidents; F32.9 Major depressive disorder, single episode, unspecified; M19.90 Unspecified osteoarthritis, unspecified site; M54.16 Radiculopathy, lumbar region; Y83.8 Other surgical procedures as the cause of abnormal reaction of the patient, or of later complication, without mention of misadventure at the time of the procedure; R54 Age-related physical debility; R73.9 Hyperglycemia, unspecified; L29.9 Pruritus, unspecified; M81.0 Age-related osteoporosis without current pathological fracture; Z88.1 Allergy status to other antibiotic agents; Z88.6 Allergy status to analgesic agent; Z88.8 Allergy status to other drugs, medicaments and biological substances; Z79.1 Long term (current) use of non-steroidal anti-inflammatories (NSAID); Z99.2 Dependence on renal dialysis; Z79.899 Other long term (current) drug therapy; Z85.118 Personal history of other malignant neoplasm of bronchus and lung; Z86.14 Personal history of Methicillin resistant Staphylococcus aureus infection; Z86.73 Personal history of transient ischemic attack (TIA), and cerebral infarction without residual deficits; Z87.11 Personal history of peptic ulcer disease; Z87.440 Personal history of urinary (tract) infections; Z87.891 Personal history of nicotine dependence; Z90.2 Acquired absence of lung [part of]; Z90.3 Acquired absence of stomach [part of]; Z91.81 History of falling; Z74.01 Bed confinement status; Z98.1 Arthrodesis status; Z98.61 Coronary angioplasty status; Y92.89 Other specified places as the place of occurrence of the external cause; Z68.29 Body mass index [BMI] 29.0-29.9, adult
CPT/HCPCS: 31500; 36415; 36600; 51702; 71045; 80048; 80150; 80184; 80202; 82375; 82553; 82805; 82962; 83605; 83735; 84100; 84443; 84478; 84484; 87070; 87077; 87186; 87804; 92610; 93005; 93306; 93970; 94002; 94003; 94640; 94660; 94760; 96365; 96368; 97110; 97162; 97167; 97530; 99291; A4216; J0278; J0885; J1160; J1170; J1200; J1580; J1650; J2405; J2543; J2704; J3370; J3490; J7030; J7042; J7050; J7060; J7626; Q0163

== ENCOUNTER 2017-04-29 14:44 | Inpatient (IN) | payer MEDICARE, MEDICAID ==
[~2017-04-29] VITALS: Ht 160 cm; Wt 86.6 kg
[2017-04-29] MEDS ORDERED: CLOPIDOGREL 75MG TABLET PO ONE (17:15)
[2017-04-29 17:55] LABS: BASOPHILS % 0.7 % (0.0-2.0); EOSINOPHILS % 0.2 % (0.0-5.0); HEMATOCRIT. 41.3 % (36.0-48.0); HEMOGLOBIN. 13.6 g/dL (12.0-16.0); LYMPHOCYTES % 28.3 % (20.0-50.0); MEAN CORPUSCULAR HEMOGLOBIN 37.3 pg (28.0-32.0); MEAN CORPUSCULAR VOLUME 113.1 fL (81.0-99.0); MEAN PLATELET VOLUME 8.9 fl (7.4-10.4); MONOCYTES % 11.4 % (2.0-8.0); NEUTROPHILS % 59.4 % (40.0-76.0); PLATELET 231 x1000/uL (130-400); RED BLOOD CELL COUNT 3.66 mill/uL (4.2-5.4); RED CELL DISTRIBUTION WIDTH 26.5 % (11.6-14.6)
[2017-04-29 18:06] LABS: CHLORIDE 98 mEq/L (98-107)
[2017-04-29 18:20] LABS: PLATELET ESTIMATE NORMAL
[2017-04-29 18:20] LABS: BG BASE EXCESS -8.2 mmol/L (-2.0-2.0); BG BILEVEL POS AIRWAY PRESSURE 15/5; BG CARBOXYHEMOGLOBIN 1.1 % (0.5-1.5); BG DEOXYHEMOGLOBIN 0.1 % (0.0-5.0); BG HCO3 ACT 17.5 mmol/L (22.0-26.0); BG METHEMOGLOBIN 0.5 % (0.0-1.5); BG OXYGEN SATURATION 99.9 % (92.0-98.5); BG OXYHEMOGLOBIN 98.3 % (94.0-97.0); BG PCO2 36.7 mmHg (35.0-45.0); BG PH 7.295 (7.350-7.450); BG PO2 557.8 mmHg (75.0-100.0); BG SAMPLE SITE RIGHT BRACHIAL; BG TOTAL HEMOGLOBIN 14.1 g/dL (12.0-18.0); BG VENT MODE MASK - BIPAP; BG VENT RATE 14 set
[2017-04-29] MEDS ORDERED: DIGOXIN 500MCG/2ML AMP ONE (19:05)
[2017-04-29] MEDS: DIGOXIN 500MCG/2ML AMP IV SCH (19:09)
[2017-04-29] MEDS ORDERED: SODIUM POLYSTYRENE SULFONATE 15 G/60 ML BOT PO ONE (19:15)
[2017-04-29] MEDS ORDERED: DEXTROSE 50% WATER 50ML SYRINGE IV ONE (19:15)
[2017-04-29] MEDS ORDERED: ALBUTEROL (0.083%) 2.5MG/3ML NEB HHN ONE (19:15)
[2017-04-29] MEDS ORDERED: INSULIN REGULAR (HUMULIN R) 300UNITS/3ML IV ONE (19:15)
[2017-04-29] MEDS ORDERED: SODIUM BICARBONATE 8.4% 1 MEQ/ML 50ML SYR IV ONE (19:15)
[2017-04-29 19:20] LABS: INR 1.2; PROTHROMBIN TIME 12.1 sec (9.4-11.6)
[2017-04-29 22:00] VITALS: BP 128/75
[2017-04-30] VITALS (12 sets, daily range): BP systolic 97–139; BP diastolic 41–74
[2017-04-30] MEDS: IPRATROPIUM/ALBUTEROL 0.5-3(2.5)MG/3ML NEB HHN SCH ×3 (04:20→13:26)
[2017-04-30] MEDS: DILTIAZEM HCL 60MG TABLET PO SCH ×5 (05:45→23:29)
[2017-04-30 07:48] LABS: BASOPHILS % 0.8 % (0.0-2.0); EOSINOPHILS % 0.9 % (0.0-5.0); HEMATOCRIT. 33.2 % (36.0-48.0); LYMPHOCYTES % 10.5 % (20.0-50.0); MEAN CORPUSCULAR HEMOGLOBIN 36.6 pg (28.0-32.0); MEAN CORPUSCULAR VOLUME 110.6 fL (81.0-99.0); MEAN PLATELET VOLUME 8.6 fl (7.4-10.4); MONOCYTES % 6.9 % (2.0-8.0); NEUTROPHILS % 80.9 % (40.0-76.0); PLATELET 184 x1000/uL (130-400); RED CELL DISTRIBUTION WIDTH 26.2 % (11.6-14.6)
[2017-04-30 08:35] LABS: CHLORIDE 99 mEq/L (98-107)
[2017-04-30] MEDS ORDERED: ASPIRIN 81MG EC TABLET PO SCH (09:00)
[2017-04-30] MEDS ORDERED: ACETAMINOPHEN 325MG TABLET PO PRN (09:15)
[2017-04-30] MEDS ORDERED: IPRATROPIUM/ALBUTEROL 0.5-3(2.5)MG/3ML NEB HHN PRN (09:15)
[2017-04-30] MEDS ORDERED: CLONIDINE 0.1MG TABLET PO PRN (09:15)
[2017-04-30] MEDS: FOLIC ACID/VITAMIN B COMP W-C TABLET PO SCH (09:35)
[2017-04-30] MEDS: ENOXAPARIN 30MG/0.3ML SYR SUBCUT SCH (09:36)
[2017-04-30] MEDS: FAMOTIDINE 20MG TABLET PO SCH (09:43)
[2017-04-30] MEDS ORDERED: PHENOBARBITAL 60MG TABLET PO NR (10:00)
[2017-04-30] MEDS: SEVELAMER CARBONATE 800 MG TABLET PO SCH ×2 (12:01→18:52)
[2017-04-30] MEDS: DIPHENHYDRAMINE 25MG CAPSULE PO PRN ×2 (14:34→23:49)
[2017-04-30] MEDS: IPRATROPIUM BROMIDE (0.02%) 0.5MG/2.5ML NEB HHN SCH ×2 (16:09→20:27)
[2017-04-30] MEDS: BUDESONIDE 0.5MG/2ML NEB HHN SCH ×2 (16:09→20:27)
[2017-04-30] MEDS: CALCIUM CARBONATE 1250MG TABLET (500MG ELEMENTAL CALCIUM) PO SCH (17:00)
[2017-04-30] MEDS: MONTELUKAST SODIUM 10MG TABLET PO SCH (18:53)
[2017-04-30] MEDS: PHENOBARBITAL 60MG TABLET PO SCH (18:53)
[2017-04-30] MEDS: MORPHINE SULFATE 4 MG/ML CPJ (NOT FOR IM USE) IV PRN (23:35)
[2017-05-01] VITALS (12 sets, daily range): BP systolic 103–126; BP diastolic 63–88
[2017-05-01] MEDS: IPRATROPIUM BROMIDE (0.02%) 0.5MG/2.5ML NEB HHN SCH ×7 (01:29→23:51)
[2017-05-01] MEDS: BUDESONIDE 0.5MG/2ML NEB HHN SCH ×3 (01:31→20:14)
[2017-05-01] MEDS: DIPHENHYDRAMINE 25MG CAPSULE PO PRN ×3 (05:50→18:17)
[2017-05-01] MEDS: DILTIAZEM HCL 60MG TABLET PO SCH (05:50)
[2017-05-01 07:33] LABS: HEMATOCRIT. 33.1 % (36.0-48.0); HEMOGLOBIN. 11.1 g/dL (12.0-16.0); MEAN CORPUSCULAR HEMOGLOBIN 37.1 pg (28.0-32.0); MEAN CORPUSCULAR VOLUME 110.3 fL (81.0-99.0); MEAN PLATELET VOLUME 8.7 fl (7.4-10.4); PLATELET 180 x1000/uL (130-400); RED CELL DISTRIBUTION WIDTH 26.3 % (11.6-14.6)
[2017-05-01] MEDS: CALCIUM CARBONATE 1250MG TABLET (500MG ELEMENTAL CALCIUM) PO SCH ×2 (09:00→17:00)
[2017-05-01] MEDS: FOLIC ACID/VITAMIN B COMP W-C TABLET PO SCH (11:33)
[2017-05-01] MEDS: FAMOTIDINE 20MG TABLET PO SCH (11:33)
[2017-05-01] MEDS: PHENOBARBITAL 60MG TABLET PO SCH ×2 (11:34→18:18)
[2017-05-01] MEDS: SEVELAMER CARBONATE 800 MG TABLET PO SCH ×3 (11:34→18:18)
[2017-05-01] MEDS: ENOXAPARIN 30MG/0.3ML SYR SUBCUT SCH (11:35)
[2017-05-01] MEDS: ISOSORBIDE MONONITRATE 30MG TABLET SR 24HR PO SCH (11:35)
[2017-05-01] MEDS: DILTIAZEM HCL 90MG TABLET PO SCH ×2 (11:36→18:18)
[2017-05-01 12:56] LABS: BG BASE EXCESS 1.2 mmol/L (-2.0-2.0); BG CARBOXYHEMOGLOBIN 1.3 % (0.5-1.5); BG DEOXYHEMOGLOBIN 2.1 % (0.0-5.0); BG FRACTION INSPIRED OXYGEN 28; BG HCO3 ACT 26.8 mmol/L (22.0-26.0); BG METHEMOGLOBIN 0.3 % (0.0-1.5); BG OXYGEN SATURATION 97.9 % (92.0-98.5); BG OXYHEMOGLOBIN 96.3 % (94.0-97.0); BG PCO2 46.5 mmHg (35.0-45.0); BG PH 7.378 (7.350-7.450); BG PO2 111.4 mmHg (75.0-100.0); BG SAMPLE SITE RIGHT BRACHIAL; BG TOTAL HEMOGLOBIN 11.6 g/dL (12.0-18.0); BG VENT MODE NASAL CANNULA
[2017-05-01 17:43] LABS: NUCLEATED RED BLOOD CELLS 1 /100 WBC; PLATELET ESTIMATE NORMAL
[2017-05-01] MEDS: MONTELUKAST SODIUM 10MG TABLET PO SCH (18:18)
[2017-05-01] MEDS: DIGOXIN 500MCG/2ML AMP IV SCH (18:19)
[2017-05-01] MEDS: MORPHINE SULFATE 4 MG/ML CPJ (NOT FOR IM USE) IV PRN (21:10)
[2017-05-02] VITALS (9 sets, daily range): BP systolic 97–121; BP diastolic 57–77
[2017-05-02] MEDS: DILTIAZEM HCL 90MG TABLET PO SCH ×3 (00:19→12:00)
[2017-05-02] MEDS: DIPHENHYDRAMINE 25MG CAPSULE PO PRN (02:39)
[2017-05-02] MEDS: IPRATROPIUM BROMIDE (0.02%) 0.5MG/2.5ML NEB HHN SCH ×4 (04:14→16:00)
[2017-05-02 05:54] LABS: HEMATOCRIT. 31.2 % (36.0-48.0); HEMOGLOBIN. 10.7 g/dL (12.0-16.0); MEAN CORPUSCULAR VOLUME 110.8 fL (81.0-99.0); MEAN PLATELET VOLUME 8.4 fl (7.4-10.4); PLATELET 176 x1000/uL (130-400); RED BLOOD CELL COUNT 2.82 mill/uL (4.2-5.4); RED CELL DISTRIBUTION WIDTH 25.7 % (11.6-14.6)
[2017-05-02] MEDS: BUDESONIDE 0.5MG/2ML NEB HHN SCH (08:05)
[2017-05-02] MEDS ORDERED: CINACALCET HCL 30MG TABLET PO SCH (09:00)
[2017-05-02 09:22] LABS: PLATELET ESTIMATE NORMAL
[2017-05-02] MEDS ORDERED: DIPHENHYDRAMINE 25MG CAPSULE PO PRN (09:30)
[2017-05-02] MEDS ORDERED: HYDROCODONE/ACETAMINOPHEN 5/325MG TABLET PO PRN (09:30)
[2017-05-02] MEDS: PHENOBARBITAL 60MG TABLET PO SCH (10:45)
[2017-05-02] MEDS: FAMOTIDINE 20MG TABLET PO SCH (10:45)
[2017-05-02] MEDS: SEVELAMER CARBONATE 800 MG TABLET PO SCH ×2 (10:47→14:12)
[2017-05-02] MEDS: ISOSORBIDE MONONITRATE 30MG TABLET SR 24HR PO SCH (10:47)
[2017-05-02] MEDS: FOLIC ACID/VITAMIN B COMP W-C TABLET PO SCH (10:47)
[2017-05-02] MEDS: ENOXAPARIN 30MG/0.3ML SYR SUBCUT SCH (10:48)
[2017-05-02] MEDS ORDERED: CALCIUM CARBONATE 1250MG TABLET (500MG ELEMENTAL CALCIUM) PO SCH (10:53)
[2017-05-02] MEDS ORDERED: DIGOXIN 125MCG TABLET PO SCH (18:00)
== END 2017-05-02 21:06 | DRG 291 ==
LOC: ER 14:44 → EDBEDREQ 17:19 → EDBEDREQSVC 18:22 → 5EST 18:31 → EDBEDREQ 18:34 → ENRESERV 19:48
PROVIDERS: ADMIT Internal Medicine Geriatric Medicine; ATTEND Internal Medicine Geriatric Medicine
PROC: 5A1D70Z Performance of Urinary Filtration, Intermittent, Less than 6 Hours Per Day (ICD-10-PCS; principal; 2017-04-29)
PROC: 5A1D70Z Performance of Urinary Filtration, Intermittent, Less than 6 Hours Per Day (ICD-10-PCS; 2017-05-01)
DX: I13.2 Hypertensive heart and chronic kidney disease with heart failure and with stage 5 chronic kidney disease, or end stage renal disease (principal); I50.23 Acute on chronic systolic (congestive) heart failure; J96.20 Acute and chronic respiratory failure, unspecified whether with hypoxia or hypercapnia; G93.41 Metabolic encephalopathy; E44.0 Moderate protein-calorie malnutrition; E87.5 Hyperkalemia; I27.20 Pulmonary hypertension, unspecified; I48.0 Paroxysmal atrial fibrillation; J44.9 Chronic obstructive pulmonary disease, unspecified; N18.6 End stage renal disease; I42.0 Dilated cardiomyopathy; J98.11 Atelectasis; I43 Cardiomyopathy in diseases classified elsewhere; I48.2 Chronic atrial fibrillation; D63.8 Anemia in other chronic diseases classified elsewhere; F02.80 Dementia in other diseases classified elsewhere, unspecified severity, without behavioral disturbance, psychotic disturbance, mood disturbance, and anxiety; F32.9 Major depressive disorder, single episode, unspecified; G30.9 Alzheimer's disease, unspecified; G40.909 Epilepsy, unspecified, not intractable, without status epilepticus; G89.4 Chronic pain syndrome; I25.10 Atherosclerotic heart disease of native coronary artery without angina pectoris; K21.9 Gastro-esophageal reflux disease without esophagitis; M19.90 Unspecified osteoarthritis, unspecified site; M81.0 Age-related osteoporosis without current pathological fracture; Z99.2 Dependence on renal dialysis; Z85.118 Personal history of other malignant neoplasm of bronchus and lung; Z86.73 Personal history of transient ischemic attack (TIA), and cerebral infarction without residual deficits; Z87.11 Personal history of peptic ulcer disease; Z90.2 Acquired absence of lung [part of]; Z90.3 Acquired absence of stomach [part of]; Z95.5 Presence of coronary angioplasty implant and graft; Z98.1 Arthrodesis status; Z88.6 Allergy status to analgesic agent; Z88.1 Allergy status to other antibiotic agents; Z79.899 Other long term (current) drug therapy; Z68.33 Body mass index [BMI] 33.0-33.9, adult
CPT/HCPCS: 36415; 36600; 71045; 80048; 80053; 80162; 82375; 82805; 82962; 83880; 84484; 85025; 85610; 85730; 93005; 94640; 94660; 96374; 96375; 97162; 99285; J1160; J1650; J1815; J2270; J3490; J7030; J7611; J7620; J7626; Q0163

== ENCOUNTER 2017-05-25 21:31 | Inpatient (IN) | payer MEDICARE, MEDICAID ==
[~2017-05-25] VITALS: Ht 167.6 cm; Wt 71.7 kg
[2017-05-25] MEDS ORDERED: ETOMIDATE 2MG/ML 10ML VIAL IV ONE (22:00)
[2017-05-25] MEDS ORDERED: NORMAL SALINE 0.9% 10 ML SYR ONE (22:00)
[2017-05-25] MEDS ORDERED: LEVETIRACETAM 1000MG/100ML 100 ML IV ONE (22:00)
[2017-05-25] MEDS ORDERED: SUCCINYLCHOLINE CHLORIDE 200MG/10ML VIAL IV ONE (22:00)
[2017-05-25] MEDS: PROPOFOL 10MG/ML 100ML 100 ML IV SCH (22:05)
[2017-05-25 22:51] LABS: HEMATOCRIT. 27.3 % (36.0-48.0); HEMOGLOBIN. 8.9 g/dL (12.0-16.0); MEAN CORPUSCULAR HEMOGLOBIN 34.9 pg (28.0-32.0); MEAN CORPUSCULAR VOLUME 106.9 fL (81.0-99.0); MEAN PLATELET VOLUME 9.2 fl (7.4-10.4); PLATELET 206 x1000/uL (130-400); RED BLOOD CELL COUNT 2.55 mill/uL (4.2-5.4); RED CELL DISTRIBUTION WIDTH 23.7 % (11.6-14.6)
[2017-05-25 22:53] LABS: CHLORIDE 99 mEq/L (98-107)
[2017-05-25 22:54] LABS: INR 1.1; PROTHROMBIN TIME 11.4 sec (9.4-11.6)
[2017-05-25 22:59] LABS: AMMONIA 37 uMol/L (<32)
[2017-05-25 23:03] LABS: PHENOBARBITAL 9.7 ug/mL (15.0-40.0)
[2017-05-25 23:07] LABS: BG BASE EXCESS -1.4 mmol/L (-2.0-2.0); BG CARBOXYHEMOGLOBIN 0.5 % (0.5-1.5); BG DEOXYHEMOGLOBIN 0.2 % (0.0-5.0); BG FRACTION INSPIRED OXYGEN 100; BG HCO3 ACT 22.8 mmol/L (22.0-26.0); BG METHEMOGLOBIN 0.3 % (0.0-1.5); BG OXYGEN SATURATION 99.8 % (92.0-98.5); BG PCO2 36.2 mmHg (35.0-45.0); BG PH 7.417 (7.350-7.450); BG PO2 502.8 mmHg (75.0-100.0); BG SAMPLE SITE RIGHT FEMORAL; BG TIDAL VOLUME(mL) 500 mL; BG TOTAL HEMOGLOBIN 9.2 g/dL (12.0-18.0); BG VENT MODE VENT - A/C; BG VENT RATE 14 set
[2017-05-25 23:38] LABS: PLATELET ESTIMATE NORMAL
[2017-05-25 23:55] LABS: CLARITY URINE TURBID (CLEAR); COLOR URINE DARK YELLOW (YELLOW); KETONES URINE TRACE (NEGATIVE); LEUKOCYTE ESTERASE URINE 3+ (NEGATIVE); NITRITE URINE NEGATIVE (NEGATIVE); OCCULT BLOOD URINE 3+ (NEGATIVE); PROTEIN URINE 2+ (NEGATIVE); SPECIFIC GRAVITY URINE 1.018 (1.005-1.030); UROBILINOGEN URINE 0.2 E.U./dL (0.2-1.0)
[2017-05-26] VITALS (81 sets, daily range): BP systolic 83–163; BP diastolic 34–112
[2017-05-26] MEDS: PROPOFOL 10MG/ML 100ML 100 ML IV SCH (06:48)
[2017-05-26] MEDS ORDERED: IPRATROPIUM/ALBUTEROL 0.5-3(2.5)MG/3ML NEB HHN PRN (08:45)
[2017-05-26] MEDS ORDERED: ONDANSETRON HCL 4MG/2ML VIAL IV PRN (09:00)
[2017-05-26] MEDS ORDERED: ASPIRIN 81MG TABLET PO SCH (09:00)
[2017-05-26] MEDS ORDERED: PHENOBARBITAL SODIUM 130MG/ML 1ML IV ONE (09:00)
[2017-05-26] MEDS ORDERED: CLONIDINE 0.1MG TABLET PO PRN (09:00)
[2017-05-26] MEDS ORDERED: ENOXAPARIN 40MG/0.4ML SYR SUBCUT SCH (09:00)
[2017-05-26] MEDS ORDERED: DOCUSATE SODIUM 100MG CAPSULE PO SCH (09:00)
[2017-05-26] MEDS ORDERED: ACETAMINOPHEN 650MG/20.3ML UDC NG PRN (09:00)
[2017-05-26] MEDS ORDERED: FUROSEMIDE 40MG/4ML VIAL IVP ONE (09:00)
[2017-05-26] MEDS ORDERED: FAMOTIDINE 20MG/2ML VIAL IV SCH (09:00)
[2017-05-26 10:14] LABS: HEMATOCRIT. 28.7 % (36.0-48.0); HEMOGLOBIN. 9.6 g/dL (12.0-16.0); MEAN CORPUSCULAR HEMOGLOBIN 35.5 pg (28.0-32.0); MEAN CORPUSCULAR VOLUME 105.6 fL (81.0-99.0); MEAN PLATELET VOLUME 9.3 fl (7.4-10.4); PLATELET 206 x1000/uL (130-400); RED BLOOD CELL COUNT 2.71 mill/uL (4.2-5.4); RED CELL DISTRIBUTION WIDTH 23.3 % (11.6-14.6)
[2017-05-26 11:32] LABS: NUCLEATED RED BLOOD CELLS 1 /100 WBC; PLATELET ESTIMATE NORMAL
[2017-05-26] MEDS ORDERED: IPRATROPIUM/ALBUTEROL 0.5-3(2.5)MG/3ML NEB HHN SCH (12:00)
[2017-05-26] MEDS ORDERED: FUROSEMIDE 40MG/4ML VIAL IVP NR (13:30)
[2017-05-26] MEDS: PANTOPRAZOLE SODIUM 40 MG/VIAL IV SCH ×2 (13:59→22:37)
[2017-05-26] MEDS ORDERED: CEFTRIAXONE 2 G in DEXTROSE 5% WATER 50 ML IV SCH (14:00)
[2017-05-26] MEDS ORDERED: PHENOBARBITAL SODIUM 130MG/ML 1ML IV NR (14:30)
[2017-05-26] MEDS: PROPOFOL 10MG/ML 100ML 100 ML IV PRN ×2 (15:20→22:40)
[2017-05-26] MEDS: IPRATROPIUM/ALBUTEROL 0.5-3(2.5)MG/3ML NEB HHN SCH ×2 (16:28→20:16)
[2017-05-26] MEDS: CEFTRIAXONE 2 G in DEXTROSE 5% WATER 50 ML IV SCH (16:45)
[2017-05-26 20:38] LABS: HEMATOCRIT 33.3 % (36.0-48.0); HEMOGLOBIN 11.4 g/dL (12.0-16.0)
[2017-05-26] MEDS: LEVETIRACETAM 500MG/5ML CUP NG SCH (22:37)
[2017-05-26] MEDS: DOCUSATE SODIUM SUGAR FREE 100MG/10ML UDC PO SCH (22:37)
[2017-05-26] MEDS: PHENOBARBITAL 60MG TABLET NG SCH (22:37)
[2017-05-27] VITALS (46 sets, daily range): BP systolic 110–173; BP diastolic 57–99
[2017-05-27] MEDS: IPRATROPIUM/ALBUTEROL 0.5-3(2.5)MG/3ML NEB HHN SCH ×6 (00:21→20:55)
[2017-05-27] MEDS: PROPOFOL 10MG/ML 100ML 100 ML IV PRN (06:04)
[2017-05-27] MEDS: PHENOBARBITAL 60MG TABLET NG SCH ×3 (06:07→21:10)
[2017-05-27 06:17] LABS: CHLORIDE 101 mEq/L (98-107)
[2017-05-27 06:24] LABS: HEMATOCRIT. 26.7 % (36.0-48.0); HEMOGLOBIN. 9.1 g/dL (12.0-16.0); MEAN CORPUSCULAR HEMOGLOBIN 35.8 pg (28.0-32.0); MEAN CORPUSCULAR VOLUME 105.1 fL (81.0-99.0); PLATELET 203 x1000/uL (130-400); RED BLOOD CELL COUNT 2.54 mill/uL (4.2-5.4); RED CELL DISTRIBUTION WIDTH 23.3 % (11.6-14.6)
[2017-05-27] MEDS: DOCUSATE SODIUM SUGAR FREE 100MG/10ML UDC PO SCH ×2 (08:28→17:05)
[2017-05-27] MEDS: LEVETIRACETAM 500MG/5ML CUP NG SCH ×2 (08:28→21:10)
[2017-05-27] MEDS: PANTOPRAZOLE SODIUM 40 MG/VIAL IV SCH ×2 (08:28→21:10)
[2017-05-27 09:00] LABS: BG BASE EXCESS -3.8 mmol/L (-2.0-2.0); BG CARBOXYHEMOGLOBIN 0.3 % (0.5-1.5); BG DEOXYHEMOGLOBIN 0.8 % (0.0-5.0); BG FRACTION INSPIRED OXYGEN 40; BG HCO3 ACT 19.7 mmol/L (22.0-26.0); BG METHEMOGLOBIN 0.3 % (0.0-1.5); BG OXYGEN SATURATION 99.2 % (92.0-98.5); BG OXYHEMOGLOBIN 98.6 % (94.0-97.0); BG PCO2 30.2 mmHg (35.0-45.0); BG PH 7.433 (7.350-7.450); BG PO2 196.1 mmHg (75.0-100.0); BG SAMPLE SITE RIGHT BRACHIAL; BG TIDAL VOLUME(mL) 500 mL; BG TOTAL HEMOGLOBIN 9.2 g/dL (12.0-18.0); BG VENT MODE VENT - A/C; BG VENT RATE 14 set
[2017-05-27 11:33] LABS: PLATELET ESTIMATE NORMAL
[2017-05-27 12:34] LABS: BG BASE EXCESS -4.5 mmol/L (-2.0-2.0); BG CARBOXYHEMOGLOBIN 0.1 % (0.5-1.5); BG FRACTION INSPIRED OXYGEN 40; BG HCO3 ACT 19.8 mmol/L (22.0-26.0); BG METHEMOGLOBIN 0.3 % (0.0-1.5); BG OXYHEMOGLOBIN 98.6 % (94.0-97.0); BG PCO2 33.4 mmHg (35.0-45.0); BG PO2 186.9 mmHg (75.0-100.0); BG PRESSURE SUPPORT 8; BG SAMPLE SITE RIGHT RADIAL; BG TOTAL HEMOGLOBIN 10.2 g/dL (12.0-18.0); BG VENT MODE VENT - CPAP
[2017-05-27] MEDS ORDERED: DILTIAZEM HCL 30MG TABLET PO SCH (14:00)
[2017-05-27] MEDS ORDERED: LORAZEPAM 2MG/ML CPJ IV PRN (16:00)
[2017-05-27] MEDS: CEFTRIAXONE 2 G in DEXTROSE 5% WATER 50 ML IV SCH (16:16)
[2017-05-27] MEDS ORDERED: DIGOXIN 500MCG/2ML AMP IV SCH (17:00)
[2017-05-27] MEDS ORDERED: DILTIAZEM HCL 5MG/ML 5ML VIAL IV ONE (17:00)
[2017-05-27] MEDS: DILTIAZEM HCL 90MG TABLET PO SCH (17:30)
[2017-05-27] MEDS: RACEPINEPHRINE 2.25% 0.5ML NEB VIAL INH SCH (22:49)
[2017-05-28] VITALS (58 sets, daily range): BP systolic 98–156; BP diastolic 46–84
[2017-05-28] MEDS: IPRATROPIUM/ALBUTEROL 0.5-3(2.5)MG/3ML NEB HHN SCH ×6 (01:04→21:27)
[2017-05-28] MEDS: DILTIAZEM HCL 90MG TABLET PO SCH ×3 (01:31→17:51)
[2017-05-28 02:11] LABS: BG BASE EXCESS -4.5 mmol/L (-2.0-2.0); BG CARBOXYHEMOGLOBIN 0.2 % (0.5-1.5); BG DEOXYHEMOGLOBIN 1.6 % (0.0-5.0); BG FRACTION INSPIRED OXYGEN 100; BG OXYGEN SATURATION 98.4 % (92.0-98.5); BG OXYHEMOGLOBIN 98.2 % (94.0-97.0); BG PCO2 54.6 mmHg (35.0-45.0); BG PH 7.242 (7.350-7.450); BG PO2 147.8 mmHg (75.0-100.0); BG SAMPLE SITE RIGHT RADIAL; BG TOTAL HEMOGLOBIN 9.7 g/dL (12.0-18.0); BG VENT MODE MASK - AEROSOL
[2017-05-28] MEDS: PHENOBARBITAL 60MG TABLET NG SCH ×3 (05:37→21:10)
[2017-05-28 05:50] LABS: BASOPHILS % 0.8 % (0.0-2.0); EOSINOPHILS % 0.2 % (0.0-5.0); HEMATOCRIT. 28.7 % (36.0-48.0); HEMOGLOBIN. 9.3 g/dL (12.0-16.0); LYMPHOCYTES % 22.5 % (20.0-50.0); MEAN CORPUSCULAR HEMOGLOBIN 34.9 pg (28.0-32.0); MEAN CORPUSCULAR VOLUME 108.2 fL (81.0-99.0); MEAN PLATELET VOLUME 9.5 fl (7.4-10.4); MONOCYTES % 9.8 % (2.0-8.0); NEUTROPHILS % 66.7 % (40.0-76.0); PLATELET 219 x1000/uL (130-400); RED BLOOD CELL COUNT 2.66 mill/uL (4.2-5.4); RED CELL DISTRIBUTION WIDTH 23.8 % (11.6-14.6)
[2017-05-28] MEDS ORDERED: CEFTRIAXONE 1 G PREMIX 50 ML IV SCH (08:00)
[2017-05-28 08:48] LABS: BG BILEVEL POS AIRWAY PRESSURE 15/5; BG CARBOXYHEMOGLOBIN 0.7 % (0.5-1.5); BG DEOXYHEMOGLOBIN 2.8 % (0.0-5.0); BG FRACTION INSPIRED OXYGEN 28; BG HCO3 ACT 23.9 mmol/L (22.0-26.0); BG METHEMOGLOBIN 0.3 % (0.0-1.5); BG OXYGEN SATURATION 97.2 % (92.0-98.5); BG OXYHEMOGLOBIN 96.2 % (94.0-97.0); BG PCO2 46.2 mmHg (35.0-45.0); BG PH 7.332 (7.350-7.450); BG PO2 100.8 mmHg (75.0-100.0); BG SAMPLE SITE RIGHT RADIAL; BG TOTAL HEMOGLOBIN 9.2 g/dL (12.0-18.0); BG VENT MODE MASK - BIPAP; BG VENT RATE 24 set
[2017-05-28] MEDS ORDERED: FLUCONAZOLE 200 MG/100ML BAG 100 ML IV SCH (10:00)
[2017-05-28] MEDS: PANTOPRAZOLE SODIUM 40 MG/VIAL IV SCH ×2 (10:52→20:36)
[2017-05-28] MEDS: LEVETIRACETAM 500MG/5ML CUP NG SCH ×2 (10:52→21:10)
[2017-05-28] MEDS: DOCUSATE SODIUM SUGAR FREE 100MG/10ML UDC PO SCH ×2 (10:52→17:52)
[2017-05-28] MEDS ORDERED: VANCOMYCIN 1,500 MG in DEXT 5% WATER 500 ML IV SCH (11:00)
[2017-05-28] MEDS ORDERED: METHYLPREDNISOLONE SOD SUCC 125 MG/2 ML VIAL IV NR (12:00)
[2017-05-28] MEDS: CEFTRIAXONE 2 G in DEXTROSE 5% WATER 50 ML IV SCH (16:26)
[2017-05-28] MEDS: METHYLPREDNISOLONE SOD SUCC 40 MG/ML VIAL IV SCH (20:36)
[2017-05-29] VITALS (29 sets, daily range): BP systolic 115–149; BP diastolic 47–101
[2017-05-29] MEDS: DILTIAZEM HCL 90MG TABLET PO SCH ×3 (02:04→17:11)
[2017-05-29] MEDS: IPRATROPIUM/ALBUTEROL 0.5-3(2.5)MG/3ML NEB HHN SCH ×6 (02:11→20:29)
[2017-05-29] MEDS: METHYLPREDNISOLONE SOD SUCC 40 MG/ML VIAL IV SCH ×3 (04:05→20:41)
[2017-05-29] MEDS: PHENOBARBITAL 60MG TABLET NG SCH ×3 (05:21→20:41)
[2017-05-29 05:48] LABS: HEMOGLOBIN. 8.9 g/dL (12.0-16.0); MEAN CORPUSCULAR HEMOGLOBIN 35.8 pg (28.0-32.0); MEAN CORPUSCULAR VOLUME 104.9 fL (81.0-99.0); MEAN PLATELET VOLUME 9.1 fl (7.4-10.4); PLATELET 200 x1000/uL (130-400); RED BLOOD CELL COUNT 2.48 mill/uL (4.2-5.4); RED CELL DISTRIBUTION WIDTH 23.3 % (11.6-14.6)
[2017-05-29 08:41] LABS: TOTAL IRON BINDING CAPACITY 205 ug/dL (250-450)
[2017-05-29 09:36] LABS: VITAMIN B12 SERUM >2000 pg/mL pg/mL (211-911)
[2017-05-29 09:43] LABS: NUCLEATED RED BLOOD CELLS 2 /100 WBC; PLATELET ESTIMATE NORMAL
[2017-05-29] MEDS: LEVETIRACETAM 500MG/5ML CUP NG SCH ×2 (09:53→20:41)
[2017-05-29] MEDS: PANTOPRAZOLE SODIUM 40 MG/VIAL IV SCH ×2 (09:53→20:41)
[2017-05-29] MEDS: DOCUSATE SODIUM SUGAR FREE 100MG/10ML UDC PO SCH ×2 (09:53→17:11)
[2017-05-29] MEDS: FOLIC ACID/VITAMIN B COMP W-C TABLET PO SCH (09:53)
[2017-05-29] MEDS: FLUCONAZOLE 100 MG/50ML BAG 100 MG in BAG 0 EACH IV SCH (09:54)
[2017-05-29] MEDS: FERROUS SULFATE 325MG TABLET PO SCH ×2 (12:43→17:14)
[2017-05-29] MEDS ORDERED: VANCOMYCIN 1 G PREMIX 200 ML IV SCH (15:00)
[2017-05-29] MEDS: RACEPINEPHRINE 2.25% 0.5ML NEB VIAL INH SCH (16:11)
[2017-05-29] MEDS ORDERED: DIPHENHYDRAMINE 25MG CAPSULE PO NR (16:30)
[2017-05-29] MEDS: CEFTRIAXONE 2 G in DEXTROSE 5% WATER 50 ML IV SCH (17:12)
[2017-05-29] MEDS ORDERED: EPOETIN ALFA 10000UNITS/ML VIAL SUBCUT SCH (21:00)
[2017-05-30] VITALS (7 sets, daily range): BP systolic 115–135; BP diastolic 54–71
[2017-05-30] MEDS: IPRATROPIUM/ALBUTEROL 0.5-3(2.5)MG/3ML NEB HHN SCH ×5 (00:22→15:32)
[2017-05-30] MEDS: DILTIAZEM HCL 90MG TABLET PO SCH ×3 (02:00→18:39)
[2017-05-30] MEDS: METHYLPREDNISOLONE SOD SUCC 40 MG/ML VIAL IV SCH ×2 (04:45→13:00)
[2017-05-30] MEDS: PHENOBARBITAL 60MG TABLET NG SCH ×2 (05:09→13:08)
[2017-05-30 07:16] LABS: HEMATOCRIT. 24.1 % (36.0-48.0); HEMOGLOBIN. 8.1 g/dL (12.0-16.0); MEAN CORPUSCULAR HEMOGLOBIN 35.4 pg (28.0-32.0); MEAN CORPUSCULAR VOLUME 105.2 fL (81.0-99.0); MEAN PLATELET VOLUME 8.5 fl (7.4-10.4); PLATELET 204 x1000/uL (130-400); RED BLOOD CELL COUNT 2.29 mill/uL (4.2-5.4); RED CELL DISTRIBUTION WIDTH 23.9 % (11.6-14.6)
[2017-05-30] MEDS ORDERED: DIPHENHYDRAMINE 25MG CAPSULE PO SCH (09:15)
[2017-05-30] MEDS: PANTOPRAZOLE SODIUM 40 MG/VIAL IV SCH (09:20)
[2017-05-30] MEDS: FOLIC ACID/VITAMIN B COMP W-C TABLET PO SCH (09:20)
[2017-05-30] MEDS: FERROUS SULFATE 325MG TABLET PO SCH ×3 (09:20→18:39)
[2017-05-30] MEDS: LEVETIRACETAM 500MG/5ML CUP NG SCH (09:20)
[2017-05-30] MEDS: FLUCONAZOLE 100 MG/50ML BAG 100 MG in BAG 0 EACH IV SCH (09:20)
[2017-05-30] MEDS: DOCUSATE SODIUM SUGAR FREE 100MG/10ML UDC PO SCH ×2 (09:20→16:30)
[2017-05-30 12:22] LABS: HEMATOCRIT 25.6 % (36.0-48.0); HEMOGLOBIN 8.5 g/dL (12.0-16.0)
[2017-05-30 15:32] LABS: NUCLEATED RED BLOOD CELLS 3 /100 WBC; PLATELET ESTIMATE NORMAL
[2017-05-30] MEDS: CEFTRIAXONE 2 G in DEXTROSE 5% WATER 50 ML IV SCH (16:29)
[2017-05-30] MEDS ORDERED: PREDNISONE 20MG TABLET PO SCH (17:00)
== END 2017-05-30 19:15 | DRG 871 ==
LOC: ER 21:46 → EDBEDREQ 23:28 → EDBEDREQTM 23:28 → MICUNO 05-26 01:27 → EDBEDREQSVC 05-26 01:30 → ENRESERV 05-26 10:59 → EDBEDREQ 05-26 11:34 → 6WST 05-29 13:42
PROVIDERS: ADMIT Internal Medicine Geriatric Medicine; ATTEND Internal Medicine Geriatric Medicine
PROC: 5A1945Z Respiratory Ventilation, 24-96 Consecutive Hours (ICD-10-PCS; principal; 2017-05-26)
PROC: 5A1D70Z Performance of Urinary Filtration, Intermittent, Less than 6 Hours Per Day (ICD-10-PCS; 2017-05-26)
PROC: 5A1D70Z Performance of Urinary Filtration, Intermittent, Less than 6 Hours Per Day (ICD-10-PCS; 2017-05-27)
PROC: 5A09357 Assistance with Respiratory Ventilation, Less than 24 Consecutive Hours, Continuous Positive Airway Pressure (ICD-10-PCS; 2017-05-28)
PROC: 5A1D70Z Performance of Urinary Filtration, Intermittent, Less than 6 Hours Per Day (ICD-10-PCS; 2017-05-29)
DX: A41.9 Sepsis, unspecified organism (principal); J96.20 Acute and chronic respiratory failure, unspecified whether with hypoxia or hypercapnia; I13.2 Hypertensive heart and chronic kidney disease with heart failure and with stage 5 chronic kidney disease, or end stage renal disease; G93.40 Encephalopathy, unspecified; J44.1 Chronic obstructive pulmonary disease with (acute) exacerbation; K92.2 Gastrointestinal hemorrhage, unspecified; I43 Cardiomyopathy in diseases classified elsewhere; G40.901 Epilepsy, unspecified, not intractable, with status epilepticus; I48.0 Paroxysmal atrial fibrillation; I27.20 Pulmonary hypertension, unspecified; E44.1 Mild protein-calorie malnutrition; I08.1 Rheumatic disorders of both mitral and tricuspid valves; N18.6 End stage renal disease; I50.23 Acute on chronic systolic (congestive) heart failure; N39.0 Urinary tract infection, site not specified; D64.9 Anemia, unspecified; F02.80 Dementia in other diseases classified elsewhere, unspecified severity, without behavioral disturbance, psychotic disturbance, mood disturbance, and anxiety; F32.9 Major depressive disorder, single episode, unspecified; G30.9 Alzheimer's disease, unspecified; G89.4 Chronic pain syndrome; I25.10 Atherosclerotic heart disease of native coronary artery without angina pectoris; I48.2 Chronic atrial fibrillation; K21.9 Gastro-esophageal reflux disease without esophagitis; M19.90 Unspecified osteoarthritis, unspecified site; M48.02 Spinal stenosis, cervical region; M81.0 Age-related osteoporosis without current pathological fracture; Z85.118 Personal history of other malignant neoplasm of bronchus and lung; Z87.11 Personal history of peptic ulcer disease; Z90.2 Acquired absence of lung [part of]; Z99.2 Dependence on renal dialysis; Z90.3 Acquired absence of stomach [part of]; Z98.1 Arthrodesis status; Z98.61 Coronary angioplasty status; Z68.25 Body mass index [BMI] 25.0-25.9, adult; Z88.1 Allergy status to other antibiotic agents; Z88.6 Allergy status to analgesic agent; Z79.1 Long term (current) use of non-steroidal anti-inflammatories (NSAID); Z79.899 Other long term (current) drug therapy
CPT/HCPCS: 36415; 36600; 70450; 71045; 80048; 80053; 80184; 80202; 81003; 82140; 82270; 82375; 82607; 82805; 83540; 83550; 84443; 84478; 84484; 85014; 85018; 85025; 85610; 86850; 86900; 86920; 87040; 87070; 87086; 92610; 94002; 94003; 94640; 94660; 96365; 96366; 96375; 99285; A4216; C9113; J0330; J0696; J0885; J1160; J1450; J1940; J1953; J2060; J2560; J2704; J2920; J2930; J3370; J3490; J7030; J7050; J7060; J7512; J7620; Q0163